=== PATIENT | female | born 1965 | race Hispanic/Latino ===

== ENCOUNTER 2017-04-22 08:39 | Outpatient (CLI) | payer MEDICARE, MEDICAID ==
--- NOTE | 2017-04-22 10:52 | CT ---
CT ABDOMEN AND PELVIS WITH AND WITHOUT IV CONTRAST: Date: 04/22/17 HISTORY: Microhematuria, right-sided back pain. FINDINGS: There is left-sided pleural thickening. The patient is post cholecystectomy. The liver, spleen, panc reas, and adrenal glands are unremarkable. No free air or free fluid is seen in the abdomen or pelvi s. There is an 11.0 mm left paraaortic lymph node. There is a tiny calculus in the right kidney. No calculi seen in the left kidney, either ureter, or the urinary bladder. No hydroureteronephrosis is seen on either side. No renal mass is identified. T here is normal contrast excretion into the ureters and urinary bladder. There are vascular calcifications without evidence of aneurysmal dilatation of the abdominal aorta. Degenerative changes are present in the spine. Uterus and ovaries are present. No abdominal wall her nias are identified. IMPRESSION: 1. Tiny nonobstructing right renal calculus. 2. Enlarged left paraaortic lymph node measuring 11.0 mm. POS: [facility]
[2017-04-22] MEDS ORDERED: Iopamidol 370 76% 100 ML VIAL ONE (14:25)
== END 2017-04-22 08:40 | disposition home or self-care (01) ==
LOC: CT 08:39
PROVIDERS: ATTEND Urology
DX: R31.29 Other microscopic hematuria (principal); N20.0 Calculus of kidney; R59.0 Localized enlarged lymph nodes
CPT/HCPCS: 74178

== ENCOUNTER 2017-09-02 06:20 | Emergency (ER) | payer MEDICARE, MEDICAID | END 2017-09-02 08:16 | disposition home or self-care (01) | LOC: EEVIPCON 06:20 → ERS 06:20 | DX: R21 Rash and other nonspecific skin eruption (principal); E11.9 Type 2 diabetes mellitus without complications; E78.5 Hyperlipidemia, unspecified; I25.10 Atherosclerotic heart disease of native coronary artery without angina pectoris; M06.9 Rheumatoid arthritis, unspecified; I10 Essential (primary) hypertension; M19.90 Unspecified osteoarthritis, unspecified site; F32.9 Major depressive disorder, single episode, unspecified; Z79.82 Long term (current) use of aspirin; Z79.84 Long term (current) use of oral hypoglycemic drugs; Z79.899 Other long term (current) drug therapy | CPT/HCPCS: 99282 ==

== ENCOUNTER 2017-09-29 08:06 | Day surgery (SDC) | payer MEDICARE, MEDICAID ==
[2017-09-29] MEDS ORDERED: diphenhydrAMINE 25 MG CAP PO PRN (08:38)
[2017-09-29] MEDS ORDERED: diphenhydrAMINE 50 MG/ML VIAL IVP PRN (08:38)
[2017-09-29] MEDS ORDERED: Acetaminophen 500 MG TAB PO PRN (08:38)
[2017-09-29] MEDS ORDERED: Sodium Chloride 0.9% 30 ML ONE (08:40)
[2017-09-29] MEDS ORDERED: ADMIXTURE FEE IVPB SCH (08:45)
[2017-09-29] MEDS ORDERED: Acetaminophen 500 MG TAB PO SCH (08:45)
[2017-09-29] MEDS ORDERED: RITUXIMAB IVPB SCH (08:45)
[2017-09-29] MEDS ORDERED: Sodium Chloride 0.9% 1,000 ML IV SCH (08:45)
[2017-09-29] MEDS ORDERED: methylPREDNISolone Sod Succ/PF 125 MG/2 ML VIAL IVP SCH (08:45)
[2017-09-29] MEDS ORDERED: diphenhydrAMINE 25 MG CAP PO SCH (08:45)
[2017-09-29] MEDS ORDERED: SODIUM CHLORIDE IVPB SCH (08:45)
[2017-09-29 09:26] VITALS: BP 126/59; TEMP 98.1
== END 2017-09-29 13:00 | disposition home or self-care (01) ==
LOC: ONC/OP 08:06
PROVIDERS: ATTEND Internal Medicine Rheumatology
DX: M06.9 Rheumatoid arthritis, unspecified (principal); I10 Essential (primary) hypertension; Z88.2 Allergy status to sulfonamides; Z88.8 Allergy status to other drugs, medicaments and biological substances; Z91.040 Latex allergy status
CPT/HCPCS: 96375; 96413; 96415; A4216; J2930; J7050; J9310

== ENCOUNTER 2018-02-03 08:08 | Day surgery (SDC) | payer MEDICARE, MEDICAID ==
[2018-02-03] MEDS ORDERED: Sodium Chloride 0.9% 30 ML ONE (08:42)
[2018-02-03] MEDS ORDERED: diphenhydrAMINE 25 MG CAP PO PRN (08:54)
[2018-02-03] MEDS ORDERED: diphenhydrAMINE 50 MG/ML VIAL IVP PRN (08:54)
[2018-02-03] MEDS ORDERED: Acetaminophen 500 MG TAB PO PRN (08:55)
[2018-02-03] MEDS ORDERED: SODIUM CHLORIDE 0.9% IVPB SCH (09:00)
[2018-02-03] MEDS ORDERED: Acetaminophen 500 MG TAB PO SCH (09:00)
[2018-02-03] MEDS ORDERED: RITUXIMAB IVPB SCH (09:00)
[2018-02-03] MEDS ORDERED: methylPREDNISolone Sod Succ/PF 125 MG/2 ML VIAL IVP SCH (09:00)
[2018-02-03] MEDS ORDERED: diphenhydrAMINE 50 MG/ML VIAL IVP SCH (09:00)
[2018-02-03] MEDS ORDERED: diphenhydrAMINE 25 MG CAP PO SCH (09:00)
[2018-02-03] MEDS ORDERED: Sodium Chloride 0.9% 1,000 ML IV SCH (09:00)
== END 2018-02-03 15:20 | disposition home or self-care (01) ==
LOC: ONC/OP 08:08
PROVIDERS: ATTEND Internal Medicine Rheumatology
DX: M06.9 Rheumatoid arthritis, unspecified (principal)
CPT/HCPCS: 96375; 96413; 96415; A4216; J2930; J7050; J9310

== ENCOUNTER 2018-03-02 20:33 | Inpatient (IN) | payer MEDICARE, MEDICAID ==
[~2018-03-02 20:33] MED LIST: ISOVUE-370 76%-LOCM 1 ML ONE
[2018-03-02 20:57] LABS: Bilirubin Negative (Negative); Blood, Urine Negative (Negative); Clarity CLEAR (Clear); Glucose, Urine (Dipstick) >=1000 mg/dL (Negative); Leukocyte Negative (Negative); Nitrite Negative (Negative); Protein, Urine (Dipstick) Negative (Neg-Trace); Specific Gravity, Urine 1.025 (1.002-1.036)
[2018-03-02 21:06] LABS: #Eosinphils 0.2 thou/uL (0.0-0.7); #Lymphocytes 2.1 thou/uL (1.20-3.40); #Monocytes 0.8 thou/uL (0.11-0.59); #Neutrophils 6.3 thou/uL (1.40-6.50); %Basophils 0.5 % (0.0-1.0); %Eosinophils 1.7 % (0.0-10.0); %Lymphocytes 22.5 % (21.0-51.0); %Monocytes 8.3 % (0.0-10.0); %Neutrophils 67.1 % (42.0-75.0); Hemoglobin 14.1 g/dL (12.0-16.0); Mean Corpuscular HGB CONC 34.9 g/dL (32.0-36.0); Mean Corpuscular Hemoglobin 29.8 pg (27.0-31.0); Mean Corpuscular Volume 85.4 fL (78.0-98.0); Mean Platelet Volume 7.7 fL (7.4-10.4); Platelet Count 296 thou/uL (130-400); RBC Distribution Width 13.7 % (11.5-14.5); Red Blood Cell (RBC) Count 4.73 mill/uL (4.20-5.40); White Blood Cell (WBC) Count 9.5 thou/uL (4.8-10.8)
[2018-03-02 21:30] LABS: ALT (SGPT) 20 U/L (8-55); AST (SGOT) 18 U/L (5-34); Albumin 3.9 g/dL (3.5-5.0); Alkaline Phosphatase 98 U/L (40-150); Anion Gap 14 mmol/L (10-20); BUN (Urea Nitrogen) 14 mg/dL (9.8-20.1); Bilirubin, Total 0.4 mg/dL (0.2-1.2); Calc. Creatinine Clearance 0 mL/min (70-130); Carbon Dioxide 28 mmol/L (22-29); Chloride 98 mmol/L (98-107); Estimated GFR-MDRD 58; Globulin 3.1 g/dL (2.4-3.5); Glucose 413 mg/dL (70-105); Lipase 225 U/L (8-78); Potassium 4.4 mmol/L (3.5-5.1); Sodium 136 mmol/L (136-145)
--- NOTE | 2018-03-02 21:57 | CT ---
CT OF THE ABDOMEN AND PELVIS WITH IV CONTRAST: 03/02/18 INDICATION: 52-year-old female with abdominal pain. COMPARISON: Prior CT of the abdomen and pelvis with and without contrast dated 04/22/17. FINDINGS: There is inflammatory stranding surrounding the pancreatic head and body suspicious for changes of no ncomplicated pancreatitis. The gallbladder is surgically absent. There is mild fatty infiltration of the liver. There is a tiny nonobstructing calculus within the inferior pole of the right kidney. Lobu lated appearance of the both kidneys is stable. The spleen appears within normal limits. Normal appen teresa seen within the right lower quadrant. There is a mild amount of retained stool within the colon. No acute osseous abnormality is evident. IMPRESSION: 1. Findings suspicious for noncomplicated pancreatitis. 2. Stable right nephrolithiasis. 3. Fatty liver. 4. Mild amount of retained stool within the colon. POS: [facility]
[2018-03-02] MEDS ORDERED: Ondansetron HCl/PF 4 MG/2 ML Vial ONE ×2 (21:58→22:05)
[2018-03-02] MEDS ORDERED: Morphine 4 MG/ML VIAL ONE ×2 (21:58→23:10)
[2018-03-02] MEDS ORDERED: Insulin Regular 300 UNITS/3 ML VIAL ONE (22:15)
--- NOTE | 2018-03-02 23:23 | PDOC.EVN ---
Attending Addendum - Attending Addendum Date/Time: 03/02/18 2300 I personally evaluated the patient and discussed the management with Dr. Tiffanie Blankenship /Shannan Brooks. I agree with the History, Examination, Assessment and Plan documented in the electronic H&P with any addition or exceptions noted below. Patient is 52 yo F with PMH RA, DM2, CAD s/p 3v CABG, fibromyalgia who is presenting with abdominal pain. Patient current pain complaint began approximately 9 days ago with intermittent severe midepigastric pain associated with bloating and nausea. However, she reports that this morning, the pain returned and has been constant since that time, with associated nausea, loose stool x1, appetite loss, bloated feelings, with radiation to her back. Reports chills but denies fevers, chest pain, shortness of breath, palpitations, headache. She reports that her blood sugars are normally well controlled in the mornings on Lantus and Glimeperide, but tend to increase through the day. She is unsure of her last A1c. Denies any recent medication changes. She is on several anti-rheumatic drugs through her sandal parts assembler, including methotrexate. Patient also reports about a 6 months history of random abdominal pain, worse after eating, and associated with early satiety and feeling bloated. Reports sometimes regurgitating undigested food. Her exam is pertinent for regular heart rate, BP 160s/80s. She is in mild distress 2/2 pain. Erythema associated with chronic seborrheic dermatitis on her face with associated skin desquamation. RRR, lungs CTAB. Her abdomen is soft, non distended. Moderate pain epigastric and diffusely, with some involuntary guarding. Bowel sounds normoactive. No c/c/e. Warm skin. No evidence of flank or periumbilical hemorrhages or ecchymosis. Labs show elevated Lipase but otherwise normal LFTs, CBC. She is hyperglycemic. CT abdomen is consistent with pancreatitis. Patient to be admitted to medical floor for: 1. Acute pancreatitis, unknown etiology. IV fluids, pain control, and bowel rest. Need full med rec to see if this is 2/2 medication effect versus poorly controlled DM. Gallbladder surgically absent therefore gallstones less likely and not visualized on imaging. BISAP score 0, will check LDH to evaluate Iron score. She is HDS and is not ill appearing at this time. 2. Hyperglycemia in setting of poorly controlled DM. Will check A1c to gauge usp glycemic control. Will need aggressive sliding scale with hypoglycemia protocol to decrease blood sugars in the setting of pancreatic inflammation. She will likely need modulation of her insulin therapy while hospitalized to result in better glycemic control. 3. Uncontrolled DM- as above. 4. Possible diabetic induced gastroparesis- chronic pain appears consistent with this diagnosis. Defer further workup on this until her acute illness is improved/resolved. 5. CAD- await med rec but likely hold the majority of her meds. Consider ASA rectal if needed. 6. DVT ppx- Lovenox.
[2018-03-02] MEDS ORDERED: Sodium Chloride 0.9% 1,000 ML IV SCH (23:45)
[2018-03-02 23:47] VITALS: BMI 46.5
[2018-03-02] MEDS ORDERED: Ondansetron HCl/PF 4 MG/2 ML Vial IVP PRN (23:56)
[2018-03-02] MEDS ORDERED: Ondansetron ODT 4 MG TAB SL PRN (23:56)
[2018-03-02] MEDS ORDERED: Acetaminophen 325 MG TAB PO PRN (23:56)
[2018-03-03] MEDS ORDERED: Senokot 8.6 MG TAB PO PRN (00:25)
[2018-03-03] MEDS ORDERED: Ondansetron HCl/PF 4 MG/2 ML Vial IVP PRN (00:25)
--- NOTE | 2018-03-03 00:27 | PDOC.FPRHP ---
- History of Present Illness History of Present Illness: 52 yo F with multiple comorbidities presents for RUQ abdominal pain. Pain started 3-4 wks ago, was gradual in onset, and pt ignored it, but then yesterday the pain increased and this morning pain became was even worse. Pain is in RUQ, sharp, radiates to the back, has been worsening now 03/04. Associated with nausea, denied vomiting; relieved by nothing. She tends to be constipated. In the ER, Abd/Pelvis CT showed pancreatitis, stable Rt nephrolithiasis, fatty liver, and constipation. Accucheck was 413. Lipase 225. Pt received Humulin R10 , 1L NS, Morphine 4 mg, and zofran 8 mg. - Allergies/Adverse Reactions Allergies Allergy/AdvReac Type Severity Reaction Status Date / Time latex Allergy Verified 11/21/15 05:42 Sulfa (Sulfonamide Allergy Verified 06/02/17 09:16 Antibiotics) sulfamethoxazole Allergy Verified 06/02/17 09:16 [From Bactrim] trimethoprim [From Bactrim] Allergy Verified 06/02/17 09:16 - Home Medications Medication Instructions Recorded Confirmed Type DULoxetine [Cymbalta] 2 capsule PO HS 11/01/13 03/02/18 History Folic Acid 2 tab PO DAILY 11/01/13 03/03/18 History Glimepiride 8 mg PO QAM-WM 11/01/13 03/03/18 History Cholecalciferol (Vitamin D3) 50,000 unit PO Q7DAYS 02/12/15 03/03/18 History [Vitamin D3] Levothyroxine Sodium [Tirosint] 50 mcg PO DAILY 02/12/15 03/03/18 History Lisinopril 5 mg PO HS 02/12/15 03/03/18 History Metoprolol Tartrate 100 mg PO DAILY 02/12/15 03/03/18 History Ranitidine HCl 150 mg PO BID 02/12/15 03/02/18 History Aspirin 1 tab PO QAM 11/21/15 03/03/18 History Hydrochlorothiazide 2 tab PO DAILY 11/21/15 03/03/18 History Insulin Glargine,Hum.Rec.Anlog 100 unit SQ BID 11/21/15 03/03/18 History [Lantus Solostar] Methotrexate Sodium/PF 25 mg IM/IV Q7DAYS 11/21/1518 History [Methotrexate 50 mg/2 ml Vial] Niacin 500 mg PO HS 11/21/15 03/03/18 History [place]-3 Acid Ethyl Esters 2 gm PO BID 11/21/15 03/03/18 History Atorvastatin Calcium 80 mg PO HS 03/02/18 03/02/18 History Buprenorphine 1 patch TOP Q7DAYS 03/03/18 03/03/18 History Fesoterodine Fumarate [Toviaz] 8 mg PO HS 03/03/18 03/03/18 History Pantoprazole Sodium 1 tab PO HS 03/03/18 03/03/18 History Rituximab [Rituxan] 1,000 mg IVPB Q112D 03/03/18 History - History PMHx: DM2, HLD, HTN, Bursititis of rt elbow, OA, RA, fibromyalgia, CAD, depression, hypothyroidism PSHx: CABG triple bypass, cholecystectomy, tonsillectomy, elbow surgery FHx: Cancer- mother with breast cancer, paternal gma and grandfather with lung cancer Social: 33 yrs with 1-2 ppd, ~46 PY hx. Denies alcohol or drug use. - Review of Systems ROS unobtainable: other General: reports: fever/chills (reports chills, no fever), weight/appetite/ sleep changes (decreased appetite past 2 days) Eyes: reports: eye pain (Rt eye pain, not new), other (decreased hearing in L ear). denies: vision changes ENT: denies: nasal congestion, rhinorrhea Respiratory: denies: cough, congestion, shortness of breath Cardiovascular: denies: chest pain, palpitation Gastrointestinal: reports: nausea, constipation. denies: vomiting, diarrhea, abdominal pain, GI bleeding Genitourinary: denies: dysuria, discharge Skin: reports: rashes (rash over face,) Neurological: denies: numbness, weakness Psychological: reports: depression. denies: anxiety - Vital signs BP 139/78, P 77, R 14, T 98.3, 100% on RA, Wt 127 kg - Physical Exam Constitutional: NAD, awake, alert and oriented, well developed HEENT: normocephalic and atraumatic, PERRLA, conjunctiva clear, MMM, oropharynx clear, other (Rough Erythematous rash over face, dark around eyes) Neck: supple, other (+LAD) Heart: RRR, normal S1/S2, no murmurs/rubs/gallops, pulses present Lungs: CTAB, no respiratory distress, good air movement, no rales/rhonchi, no wheezing Abdomen: soft, bowel sounds present, no masses/distention, other (RUQ very TTP, no rebound tenderness, moderate guarding) Musculoskeletal: normal structure, normal tone, ROM grossly normal Neurological: CN II-XII intact, normal sensation Skin: good turgor, capillary refill <2 seconds Psychiatric: normal mood and affect, good judgment and insight, intact recent and remote memory FMR H&P: Results - Labs Result Diagrams: 03/03/18 04:52 03/03/18 04:52 Lab results: WBC 9.5 thou/uL (4.8-10.8) 03/02/18 20:55 Hgb 14.1 g/dL (12.0-16.0) 03/02/18 20:55 Hct 40.4 % (36.0-47.0) 03/02/18 20:55 MCV 85.4 fL (78.0-98.0) 03/02/18 20:55 Plt Count 296 thou/uL (130-400) 03/02/18 20:55 Neutrophils % 67.1 % (42.0-75.0) 03/02/18 20:55 Sodium 136 mmol/L (136-145) 03/02/18 20:55 Potassium 4.4 mmol/L (3.5-5.1) 03/02/18 20:55 Chloride 98 mmol/L (98-107) 03/02/18 20:55 Carbon Dioxide 28 mmol/L (22-29) 03/02/18 20:55 BUN 14 mg/dL (9.8-20.1) 03/02/18 20:55 Creatinine 1.00 mg/dL (0.6-1.1) 03/02/18 20:55 Glucose 413 mg/dL (70-105) H 03/02/18 20:55 Calcium 10.0 mg/dL (7.8-10.44) 03/02/18 20:55 Total Bilirubin 0.4 mg/dL (0.2-1.2) 03/02/18 20:55 AST 18 U/L (5-34) 03/02/18 20:55 ALT 20 U/L (8-55) 03/02/18 20:55 Alkaline Phosphatase 98 U/L (40-150) 03/02/18 20:55 Serum Total Protein 7.0 g/dL (6.0-8.3) 03/02/18 20:55 Albumin 3.9 g/dL (3.5-5.0) 03/02/18 20:55 Lipase 225 U/L (8-78) H 03/02/18 20:55 Urine Ketones Negative mg/dL (Negative) 03/02/18 20:40 Urine Blood Negative (Negative) 03/02/18 20:40 Urine Nitrite Negative (Negative) 03/02/18 20:40 Ur Leukocyte Esterase Negative (Negative) 03/02/18 20:40 - Radiology Interpretation CT scan - abdomen Status: report reviewed by me (Pancreatitis, stable Rt nephrolithiasis, fatty liver, constipation) FMR H&P: A/P - Plan 52 yo F with multiple comorbidities presents for RUQ abdominal pain. Acute Pancreatitis -Abd CT/Pelvis showed pancreatitis. Lipase 225. Unknown at this time what precipitated her pancreatitis, but possibly 2/2 to medications vs uncontrolled sugars vs other. HCTZ and glimipiride held at this time. -Bigelow Criteria: 1; BISAP score 0 -LR @ 175 ml/hr, NPO with icechips and sips of water with meds. -Morphine for pain control, zofran for nausea -Will continue to monitor -Morning CBC and CMP Hyperglycemia -Pt initial glucose 413. Hx of DM type 2 -SSI started Constipation -Senna docusate ordered HLD, HTN, CAD, depression, hypothyroidism: -Continued home medications Code status: Full code Ambrocio Blankenship, PGY-1 FMR H&P: Upper Level - Pertinent history 52F presents for 2 weeks of upper quadrant abd pain. It has been constant, exacerbated by food. Nothing has helped. It is associated with nausea. It is describes as a sharp pain with radiation to back. She rate it as a 8/10 in the ER. She specifically denies vomiting, diarrhea, constipation, fever, SOB, or chest pain. In ER, she was found to be hyperglycemic but without acidosis. She received 10 U of humalin R, 1 L NS, Morphine 4 mg, Zofran 8 mg. PMH: DM2, HLD, HTN, Right bursitis, OA, RA, fibromyalgia, CAD, depression PSH: CABG x3, cholecystectomy, tonsillectomy, rt elbow sx Allergy: Bactrim, Latex, rubber product Med: See Whiskey Proof Reader note FH: Father and Mother with diabetes SH: Tobacco abuser ROS Gen: Deny fever, chills HEENT: Deny headache, cough, congestion Resp: Deny SOB CV: Deny chest pain , palpitation GI: Endorse abd pain, nausea : Denies dysuria - Pertinent findings Vitals: 139/78, Pulse 77, Resp 19, Tmax 98.3, O2 100% on RA, Wt 126 kg Gen: Alert, grossly oriented, obese, NAD HEENT: Normocephalic, no juandice, moist mucosal membrane, supple neck CV: RRR with possible systolic murmur Resp: CTA bilaterally Abd: Soft, normoactive bowel sound, tenderness to palpation, without rigidity Derm: No rash or lesion noted Lipase 225, Serum glucose 413, Urine glucose 1000, CT scan: Uncomplicated pancreatitis, stable R nephrolithiasis, fatty liver, constipation - Plan Date/Time: 03/03/18 0027 I, [Luis Antonio Ly], have evaluated this patient and agree with findings/plan as outlined by programming internship resident. Pertinent changes/additions are listed here. 1. Pancreatitis: At this time, unknown etiology. Possible drug induced. Bigelow score of 1 on admission. Fluid hydration, pain control, NPO at this time. Advance diet as tolerated. 2. Hyperglycemia: Patient on high dose of home insulin. Reduce from 100 U BID to 40 U BID of long acting with SSI. W 3. Constipation: Start on laxatives. 4. Fatty liver disease: Environmental Attorney patient on dietary changes. 5. DM2: Insulin management ass above. Hold glimeperide as possible cause of pancreatitis.At this time, uncontrolled. 6. HTN: Hold HCTZ, possible cause of pancreatitis. Continue other home med. 7. GERD: Continue home protonix and ranitidine 8. Hypothyrodism: Continue home levothyroxine 9. HLD: Continue home atorvastatin 10: Depression: Continue home duloxetine 11. RA: Hold rheumatoid mediation at this time. Attending Addendum - Attending Addendum Date/Time: 03/02/18 1780 I personally evaluated the patient and discussed the management with Dr. Blankenship/ Cecilia. I agree with the History, Examination, Assessment and Plan documented above with any addition or exceptions noted below. Please see event noted dated 03/02/18 for further attending details.
[2018-03-03] MEDS ORDERED: Dextrose 5% in Water 1,000 ML IV PRN (00:34)
[2018-03-03] MEDS ORDERED: Dextrose 50% Abboject 50 ML SYRINGE SLOW IVP PRN (00:34)
[2018-03-03] MEDS ORDERED: Lactated Ringer's 1,000 ML IV SCH (00:45)
[2018-03-03] MEDS ORDERED: Morphine 4 MG/ML VIAL SLOW IVP SCH (01:00)
[2018-03-03] MEDS ORDERED: DULoxetine 60 MG CAP PO SCH ×2 (01:00→21:00)
[2018-03-03] MEDS: Lactated Ringer's 1,000 ML IV SCH ×5 (01:00→22:40)
[2018-03-03] MEDS ORDERED: Enoxaparin Sodium 40 MG/0.4 ML SYRINGE SC SCH (01:00)
[2018-03-03] MEDS ORDERED: Atorvastatin Calcium 40 MG TAB PO SCH (01:15)
[2018-03-03] MEDS: Morphine 4 MG/ML VIAL SLOW IVP PRN ×4 (04:39→21:12)
[2018-03-03] MEDS: HumaLOG 300 UNITS/3 ML VIAL SC PRN (04:47)
[2018-03-03] MEDS ORDERED: diphenhydrAMINE 50 MG/ML VIAL IVP SCH (05:00)
[2018-03-03] MEDS ORDERED: Fentanyl 100 MCG/2 ML VIAL SLOW IVP SCH (05:22)
[2018-03-03] MEDS ORDERED: Melatonin 3 MG TAB PO SCH (05:23)
[2018-03-03] MEDS ORDERED: Levothyroxine Sodium 50 MCG TAB PO SCH (06:00)
[2018-03-03 06:10] LABS: #Basophils 0.1 thou/uL (0.0-0.2); #Eosinphils 0.2 thou/uL (0.0-0.7); #Lymphocytes 2.5 thou/uL (1.20-3.40); #Monocytes 1.1 thou/uL (0.11-0.59); #Neutrophils 7.2 thou/uL (1.40-6.50); %Basophils 0.8 % (0.0-1.0); %Eosinophils 1.9 % (0.0-10.0); %Lymphocytes 22.4 % (21.0-51.0); %Monocytes 9.7 % (0.0-10.0); %Neutrophils 65.1 % (42.0-75.0); Hemoglobin 12.7 g/dL (12.0-16.0); Mean Corpuscular HGB CONC 34.1 g/dL (32.0-36.0); Mean Corpuscular Volume 85.1 fL (78.0-98.0); Mean Platelet Volume 8.2 fL (7.4-10.4); Platelet Count 268 thou/uL (130-400); RBC Distribution Width 13.8 % (11.5-14.5); Red Blood Cell (RBC) Count 4.39 mill/uL (4.20-5.40)
[2018-03-03 06:22] LABS: ALT (SGPT) 18 U/L (8-55); AST (SGOT) 15 U/L (5-34); Albumin 3.5 g/dL (3.5-5.0); Alkaline Phosphatase 87 U/L (40-150); Anion Gap 15 mmol/L (10-20); BUN (Urea Nitrogen) 11 mg/dL (9.8-20.1); Bilirubin, Total 0.5 mg/dL (0.2-1.2); Calc. Creatinine Clearance 166 mL/min (70-130); Calcium 9.2 mg/dL (7.8-10.44); Carbon Dioxide 26 mmol/L (22-29); Chloride 100 mmol/L (98-107); Estimated GFR-MDRD 76; Globulin 2.6 g/dL (2.4-3.5); Glucose 238 mg/dL (70-105); Lipase 193 U/L (8-78); Potassium 3.8 mmol/L (3.5-5.1); Protein, Total 6.1 g/dL (6.0-8.3); Sodium 137 mmol/L (136-145)
[2018-03-03 06:37] LABS: Cardiac Risk 4.9 (Less than 4.5)
[2018-03-03] MEDS ORDERED: hydrALAZINE 20 MG/ML VIAL SLOW IVP PRN (07:47)
--- NOTE | 2018-03-03 07:53 | PDOC.FM ---
- Subjective Subjective: No acute events overnight. Pt reports pain that is slightly improved from yesterday. Does report persistent pain with medications and sips of water, as such will be placed strict NPO. Any necessary medications to be given IV. - Objective Vital Signs & Weight: Vital Signs (12 hours) Temp Pulse Resp BP Pulse Ox 03/03/18 04:38 98.5 F 74 18 135/76 96 03/02/18 23:38 98.4 F 84 18 95 03/02/18 23:30 98.4 F 84 18 175/90 H 95 Weight Weight 126.722 kg I&O: 03/02/18 03/03/18 03/04/18 06:59 06:59 06:59 Intake Total 772 Balance 772 Result Diagrams: 03/03/18 04:52 03/03/18 04:52 <Asif Proctor - Last Filed: 03/03/18 07:51> - Objective Vital Signs & Weight: Vital Signs (12 hours) Temp Pulse Resp BP BP Pulse Ox 03/03/18 07:56 98.4 F 78 16 115/67 95 03/03/18 04:38 98.5 F 74 18 135/76 96 03/02/18 23:38 98.4 F 84 18 95 03/02/18 23:30 98.4 F 84 18 175/90 H 95 Weight Weight 126.722 kg I&O: 03/02/18 03/03/18 03/04/18 06:59 06:59 06:59 Intake Total 772 Balance 772 Result Diagrams: 03/03/18 04:52 03/03/18 04:52 <Andrea Mike - Last Filed: 03/03/18 10:24> Phys Exam - Physical Examination Constitutional: NAD HEENT: PERRLA, sclera anicteric Neck: no nodes, no JVD Respiratory: no wheezing, no rales, no rhonchi, clear to auscultation bilateral Cardiovascular: RRR, no significant murmur, no rub Gastrointestinal: soft, no distention, positive bowel sounds TTP epigastrium w/ guarding. No rebound. Musculoskeletal: no edema, pulses present Neurological: non-focal, moves all 4 limbs Skin: cap refill <2 seconds Deviation from normal: seborrheic dermatitis over face <Asif Proctor - Last Filed: 03/03/18 07:51> Dx/Plan (1) Pancreatitis Code(s): K85.90 - ACUTE PANCREATITIS WITHOUT NECROSIS OR INFECTION, UNSP Status: Acute (2) Leukocytosis Code(s): D72.829 - ELEVATED WHITE BLOOD CELL COUNT, UNSPECIFIED Status: Acute (3) Diabetes type 2, uncontrolled Code(s): E11.65 - TYPE 2 DIABETES MELLITUS WITH HYPERGLYCEMIA Status: Acute (4) Hypothyroidism Code(s): E03.9 - HYPOTHYROIDISM, UNSPECIFIED Status: Acute (5) HLD (hyperlipidemia) Code(s): E78.5 - HYPERLIPIDEMIA, UNSPECIFIED Status: Acute (6) HTN (hypertension) Code(s): I10 - ESSENTIAL (PRIMARY) HYPERTENSION Status: Chronic Qualifiers: Hypertension type: essential hypertension Qualified Code(s): I10 - Essential (primary) hypertension (7) Depression Code(s): F32.9 - MAJOR DEPRESSIVE DISORDER, SINGLE EPISODE, UNSPECIFIED Status : Acute - Plan Plan: 1) Pancreatitis: - pt reports pain with meds/icee chips and sips of water, as such will be placed NPO and medications will be held - if she is reporting improvement of pain, can give meds this evening. - Iron score of 1 2/2 hyperglycemia 2) DMII: - uncontrolled - will give lantus 40U BID - only given 10U insulin in ED with drop in BS to 200s - Mod SSI - monitor 3) HLD: - check FLP r/o hypertriglyceridemia as cause of pancreatitis - hold statin until tolerating PO 4) HTN: - hydralazine PRN for BP >160/110 - hold lisinopril for now - no diruretics or thiazides 2/2 #1 5) Depression: - hold home meds - give this PM if tolerating PO later 6) Hypothyroid: - hold home meds - Give in AM if tolerating PO Dispo: Persistent pain with only meds/sips of water. Cont IV pain control and pt to be strict NPO. Cont IV fluids. <Asif Proctor - Last Filed: 03/03/18 07:51> Attending Addendum - Attending Addendum Date/Time: 03/03/18 1023 I personally evaluated the patient and discussed the management with Dr. Proctor. I agree with the History, Examination, Assessment and Plan documented above with any addition or exceptions noted below. Patient with some improvement in pain but continues to have worsening with sips of water or ice and medications. Will make strict NPO at this time. Continue IVF and pain control. Insulin as needed for blood sugar control. Other labs and vitals stable. <Andrea Mike - Last Filed: 03/03/18 10:24>
[2018-03-03] MEDS ORDERED: Fish Oil 1,000 MG CAP PO SCH (08:00)
[2018-03-03] MEDS ORDERED: Aspirin 325 MG TAB PO SCH (08:00)
[2018-03-03] MEDS ORDERED: Non-Formulary Item 1 EACH (Insulin Glargine,Hum.Rec.Anlog [Lantus Solostar] 40 UNIT) SQ SCH (09:00)
[2018-03-03] MEDS ORDERED: Metoprolol Tartrate 100 MG TAB PO SCH (09:00)
[2018-03-03] MEDS ORDERED: Famotidine 20 MG TAB PO SCH (09:00)
[2018-03-03] MEDS ORDERED: Folic Acid 1 MG TAB PO SCH (09:00)
[2018-03-03] MEDS ORDERED: HYDROCHLOROTHIAZIDE PO SCH (09:00)
[2018-03-03] MEDS ORDERED: TROSPIUM 20 MG TABLET PO SCH (09:00)
[2018-03-03] MEDS: Famotidine/PF 20 mg/2ml Vial SLOW IVP SCH (10:41)
[2018-03-03] MEDS: Insulin Glargine 40 UNITS in Pre-Filled Syringe 1 EACH SC SCH ×2 (10:42→22:07)
[2018-03-03] MEDS ORDERED: Acetaminophen 325 MG TAB PO PRN (15:24)
[2018-03-03] MEDS ORDERED: Ketorolac Tromethamine 30 MG/ML VIAL IVP SCH ×2 (16:03→22:15)
[2018-03-03] MEDS ORDERED: Lisinopril 5 MG TAB PO SCH (21:00)
[2018-03-03] MEDS ORDERED: Niacin 500 MG TAB PO SCH (21:00)
[2018-03-03] MEDS: Enoxaparin Sodium 40 MG/0.4 ML SYRINGE SC SCH (21:12)
[2018-03-03] MEDS ORDERED: Promethazine HCl 25 MG/ML VIAL IM SCH (22:15)
[2018-03-03] MEDS ORDERED: diphenhydrAMINE 25 MG in Sodium Chloride 0.9% 50 ML IVPB SCH (22:15)
[2018-03-04] MEDS: Lactated Ringer's 1,000 ML IV SCH ×4 (04:36→23:45)
[2018-03-04 05:02] LABS: #Basophils 0.1 thou/uL (0.0-0.2); #Eosinphils 0.2 thou/uL (0.0-0.7); #Lymphocytes 2.7 thou/uL (1.20-3.40); #Monocytes 0.8 thou/uL (0.11-0.59); #Neutrophils 4.4 thou/uL (1.40-6.50); %Basophils 1.1 % (0.0-1.0); %Eosinophils 2.2 % (0.0-10.0); %Lymphocytes 33.1 % (21.0-51.0); %Monocytes 9.6 % (0.0-10.0); %Neutrophils 53.9 % (42.0-75.0); Hemoglobin 12.3 g/dL (12.0-16.0); Mean Corpuscular HGB CONC 34.3 g/dL (32.0-36.0); Mean Corpuscular Hemoglobin 29.3 pg (27.0-31.0); Mean Corpuscular Volume 85.6 fL (78.0-98.0); Mean Platelet Volume 8.1 fL (7.4-10.4); Platelet Count 262 thou/uL (130-400); RBC Distribution Width 13.6 % (11.5-14.5); Red Blood Cell (RBC) Count 4.18 mill/uL (4.20-5.40); White Blood Cell (WBC) Count 8.1 thou/uL (4.8-10.8)
[2018-03-04 05:05] LABS: ALT (SGPT) 15 U/L (8-55); AST (SGOT) 16 U/L (5-34); Albumin 3.1 g/dL (3.5-5.0); Alkaline Phosphatase 74 U/L (40-150); Anion Gap 11 mmol/L (10-20); BUN (Urea Nitrogen) 8 mg/dL (9.8-20.1); Bilirubin, Total 0.6 mg/dL (0.2-1.2); Calc. Creatinine Clearance 169 mL/min (70-130); Carbon Dioxide 30 mmol/L (22-29); Chloride 104 mmol/L (98-107); Estimated GFR-MDRD 77; Globulin 2.5 g/dL (2.4-3.5); Glucose 103 mg/dL (70-105); Potassium 3.6 mmol/L (3.5-5.1); Protein, Total 5.6 g/dL (6.0-8.3); Sodium 141 mmol/L (136-145)
[2018-03-04] MEDS: Morphine 4 MG/ML VIAL SLOW IVP PRN (05:35)
[2018-03-04] MEDS ORDERED: RITUXIMAB 1000 MG IVPB SCH (06:30)
--- NOTE | 2018-03-04 06:34 | PDOC.FM ---
- Subjective Subjective: Pt was found to have a beprenorphine patch by nursing last PM. Currently pt reports persistent pain, but reports slight improvement from yesterday. She denies cp, sob, nvd. She denies passing flatus and has not had a bm since admission. - Objective Vital Signs & Weight: Vital Signs (12 hours) Temp Pulse Resp BP Pulse Ox 03/04/18 04:33 98.2 F 73 16 118/71 91 L 03/04/18 00:30 98.1 F 74 16 116/70 93 L 03/03/18 20:01 98.0 F 73 18 120/76 94 L 03/03/18 20:00 98.0 F 73 18 94 L Weight Weight 126.722 kg I&O: 03/02/18 03/03/18 03/04/18 06:59 06:59 06:59 Intake Total 772 2100 Balance 772 2100 Result Diagrams: 03/04/18 03:34 03/04/18 03:34 <Asif Proctor - Last Filed: 03/04/18 06:36> - Objective Vital Signs & Weight: Vital Signs (12 hours) Temp Pulse Resp BP BP Pulse Ox 03/04/18 08:34 70 138/81 03/04/18 07:27 97.5 F L 70 20 138/81 96 03/04/18 04:33 98.2 F 73 16 118/71 91 L 03/04/18 00:30 98.1 F 74 16 116/70 93 L Weight Weight 126.722 kg I&O: 03/03/18 03/04/18 03/05/18 06:59 06:59 06:59 Intake Total 772 2100 Balance 772 2100 Result Diagrams: 03/04/18 03:34 03/04/18 03:34 <Andrea Mike - Last Filed: 03/04/18 08:49> Phys Exam - Physical Examination Constitutional: NAD HEENT: PERRLA, sclera anicteric Neck: no nodes, no JVD Respiratory: no wheezing, no rales, no rhonchi, clear to auscultation bilateral Cardiovascular: RRR, no significant murmur, no rub Gastrointestinal: soft, no distention diffusely ttp, worse in RUQ and RLQ in addition to epigastrium, sluggish BS Musculoskeletal: no edema, pulses present Neurological: non-focal, moves all 4 limbs Psychiatric: normal affect Skin: cap refill <2 seconds Deviation from normal: sebhorreic dermatitis face <Asif Proctor - Last Filed: 03/04/18 06:36> Dx/Plan (1) Pancreatitis Code(s): K85.90 - ACUTE PANCREATITIS WITHOUT NECROSIS OR INFECTION, UNSP Status: Acute (2) Leukocytosis Code(s): D72.829 - ELEVATED WHITE BLOOD CELL COUNT, UNSPECIFIED Status: Resolved (3) Diabetes type 2, uncontrolled Code(s): E11.65 - TYPE 2 DIABETES MELLITUS WITH HYPERGLYCEMIA Status: Acute (4) Hypothyroidism Code(s): E03.9 - HYPOTHYROIDISM, UNSPECIFIED Status: Acute (5) HLD (hyperlipidemia) Code(s): E78.5 - HYPERLIPIDEMIA, UNSPECIFIED Status: Acute (6) HTN (hypertension) Code(s): I10 - ESSENTIAL (PRIMARY) HYPERTENSION Status: Chronic Qualifiers: Hypertension type: essential hypertension Qualified Code(s): I10 - Essential (primary) hypertension (7) Depression Code(s): F32.9 - MAJOR DEPRESSIVE DISORDER, SINGLE EPISODE, UNSPECIFIED Status : Acute - Plan Plan: 1) Pancreatitis: - pt rpeorts some improvement of pain; however, pain is persistent and diffuse - she was found to have pubrenorphine patch yesterday PM which is complicating clinical picture - her pain seems more diffuse and her exam suggests global hypofunctioning bowel. - differential includes diabetic gastroparesis vs opioid induced gastroparesis - will cont prn morphine for pain control 2/2 ct findings of pancreatitis - ADAT, will start clear liquids - resume home meds - add metoclopramide 5mg IVP TID before meals 2) DMII: - uncontrolled - will give lantus 40U BID - currently held lantus 2/2 NPO and decreased PO intake 3) HLD: - cont statin 4) HTN: - hydralazine PRN for BP >160/110 - No HCTZ - Cont lisinopril, monitor 5) Depression: - resume home meds 6) Hypothyroid: -resume home meds Dispo: Pt reports persistent, diffuse abdominal pain worse on the rt side of abdomen and epigastrium. Clinical picture complicated by uncontrolled DMII and chronic opioid use. Will resume home meds, ADAT and add reglan 5mg IVP w/ meals. Cont to monitor for clinical improvement. Labs have normalized and LFTs are WNL. Low suspicion for infectious or biliary source. <Asif Proctor - Last Filed: 03/04/18 06:36> Attending Addendum - Attending Addendum Date/Time: 03/04/18 0848 I personally evaluated the patient and discussed the management with Dr. Proctor. I agree with the History, Examination, Assessment and Plan documented above with any addition or exceptions noted below. Patient reports feeling improved this morning and was feeling alright with ice chips. Will advance diet to clears and give Reglan for nausea and possible symptoms of gastroparesis. If tolerates well, continue to advance. Otherwise, will need to de-escalate diet again and consider GI consult due to recurrent pancreatitis. <Andrea Mike - Last Filed: 03/04/18 08:49>
[2018-03-04] MEDS ORDERED: Levothyroxine Sodium 50 MCG TAB PO SCH (07:00)
[2018-03-04] MEDS ORDERED: Metoclopramide HCl 10 MG/2 ML VIAL IVP SCH ×2 (07:00→14:00)
[2018-03-04 07:01] LABS: Hemoglobin A1c 11.5 % (4.0-6.0)
[2018-03-04] MEDS: Lisinopril 5 MG TAB PO SCH (08:34)
[2018-03-04] MEDS: Aspirin 325 mg Enteric Coated Tablet PO SCH (08:34)
[2018-03-04] MEDS: Famotidine/PF 20 mg/2ml Vial SLOW IVP SCH (08:35)
[2018-03-04] MEDS: Insulin Glargine 10 UNITS in Pre-Filled Syringe SC SCH (08:36)
[2018-03-04] MEDS: Betamethasone 0.1% Cream 15 GM TUBE TOP SCH ×2 (08:36→20:59)
[2018-03-04] MEDS: Hydrocortisone 1% Cream 1.5 GM Packet TOP SCH (08:36)
[2018-03-04] MEDS ORDERED: FLUOCINOLONE ACETONIDE TOP SCH (09:00)
[2018-03-04] MEDS: Metoclopramide HCl 10 MG/2 ML VIAL IVP SCH ×2 (13:54→20:59)
[2018-03-04 19:54] VITALS: TEMP 98.4
[2018-03-04] MEDS: Enoxaparin Sodium 40 MG/0.4 ML SYRINGE SC SCH (20:59)
[2018-03-04] MEDS ORDERED: Atorvastatin Calcium 40 MG TAB PO SCH ×2 (21:00)
[2018-03-04] MEDS ORDERED: Insulin Glargine 10 UNITS in Pre-Filled Syringe SC SCH (21:00)
[2018-03-04] MEDS ORDERED: DULoxetine 60 MG CAP PO SCH (21:00)
[2018-03-05 05:00] LABS: #Eosinphils 0.1 thou/uL (0.0-0.7); #Lymphocytes 2.6 thou/uL (1.20-3.40); #Monocytes 0.8 thou/uL (0.11-0.59); #Neutrophils 4.5 thou/uL (1.40-6.50); %Basophils 0.6 % (0.0-1.0); %Eosinophils 1.7 % (0.0-10.0); %Lymphocytes 32.6 % (21.0-51.0); %Monocytes 9.9 % (0.0-10.0); %Neutrophils 55.3 % (42.0-75.0); Hemoglobin 12.9 g/dL (12.0-16.0); Mean Corpuscular HGB CONC 34.4 g/dL (32.0-36.0); Mean Corpuscular Hemoglobin 29.5 pg (27.0-31.0); Mean Corpuscular Volume 85.5 fL (78.0-98.0); Mean Platelet Volume 7.5 fL (7.4-10.4); Platelet Count 288 thou/uL (130-400); RBC Distribution Width 13.5 % (11.5-14.5); Red Blood Cell (RBC) Count 4.37 mill/uL (4.20-5.40); White Blood Cell (WBC) Count 8.1 thou/uL (4.8-10.8)
[2018-03-05 05:21] LABS: ALT (SGPT) 16 U/L (8-55); AST (SGOT) 15 U/L (5-34); Albumin 3.6 g/dL (3.5-5.0); Alkaline Phosphatase 82 U/L (40-150); Anion Gap 14 mmol/L (10-20); BUN (Urea Nitrogen) 6 mg/dL (9.8-20.1); Bilirubin, Total 0.8 mg/dL (0.2-1.2); Calc. Creatinine Clearance 175 mL/min (70-130); Calcium 9.7 mg/dL (7.8-10.44); Carbon Dioxide 27 mmol/L (22-29); Chloride 102 mmol/L (98-107); Estimated GFR-MDRD 80; Globulin 2.9 g/dL (2.4-3.5); Glucose 152 mg/dL (70-105); Potassium 3.9 mmol/L (3.5-5.1); Protein, Total 6.5 g/dL (6.0-8.3); Sodium 139 mmol/L (136-145)
[2018-03-05] MEDS: Metoclopramide HCl 10 MG/2 ML VIAL IVP SCH (05:24)
[2018-03-05] MEDS: Lactated Ringer's 1,000 ML IV SCH (05:25)
[2018-03-05] MEDS ORDERED: Levothyroxine Sodium 50 MCG TAB PO SCH (06:00)
--- NOTE | 2018-03-05 07:25 | PDOC.FM ---
- Subjective Subjective: This morning patient states that her pain is totally resolved. She has been on clear liquid diet and has not had any solids as of yet. She does have a rosaeca that developed over the last few days. She is having no abdominal pain, N/V/D. She would like to go home today. - Objective MAR Reviewed: Yes Vital Signs & Weight: Vital Signs (12 hours) Temp Pulse Resp BP Pulse Ox 03/04/18 20:00 98.4 F 85 18 94 L 03/04/18 19:51 98.4 F 85 18 164/82 H 94 L Weight Weight 126.722 kg I&O: 03/04/18 03/05/18 03/06/18 06:59 06:59 06:59 Intake Total 2100 2404 Balance 2100 2404 Result Diagrams: 03/05/18 04:19 03/05/18 04:18 <Selvin Blankenship - Last Filed: 03/05/18 07:24> - Objective Vital Signs & Weight: Vital Signs (12 hours) Temp Pulse Resp BP BP Pulse Ox 03/05/18 08:29 60 156/65 H 03/05/18 08:00 98.4 F 60 18 98 03/05/18 07:48 98.4 F 60 18 156/65 H 98 Weight Weight 126.722 kg I&O: 03/04/18 03/05/18 03/06/18 06:59 06:59 06:59 Intake Total 2100 2404 Balance 2100 2404 Result Diagrams: 03/05/18 04:19 03/05/18 04:18 <Kyle Ponce - Last Filed: 03/05/18 12:41> Phys Exam - Physical Examination Constitutional: NAD HEENT: PERRLA, moist MMs Respiratory: no wheezing, clear to auscultation bilateral Cardiovascular: RRR, no significant murmur Gastrointestinal: soft, non-tender, no distention, positive bowel sounds Musculoskeletal: no edema, pulses present Neurological: non-focal, moves all 4 limbs Psychiatric: A&O x 3 Skin: cap refill <2 seconds Deviation from normal: rosaeca on the face <Selvin Blankenship - Last Filed: 03/05/18 07:24> Dx/Plan (1) Pancreatitis Code(s): K85.90 - ACUTE PANCREATITIS WITHOUT NECROSIS OR INFECTION, UNSP Status: Acute (2) Diabetes type 2, uncontrolled Code(s): E11.65 - TYPE 2 DIABETES MELLITUS WITH HYPERGLYCEMIA Status: Acute (3) HLD (hyperlipidemia) Code(s): E78.5 - HYPERLIPIDEMIA, UNSPECIFIED Status: Acute (4) HTN (hypertension) Code(s): I10 - ESSENTIAL (PRIMARY) HYPERTENSION Status: Chronic Qualifiers: Hypertension type: essential hypertension Qualified Code(s): I10 - Essential (primary) hypertension - Plan Plan: # Pancreatitis: -pain is resolved this AM - lipase 225->193 - no morphine overnight - metoclopramide 5mg IVP TID before meals - advance diet to solids this AM # DMII - uncontrolled - lantus 40U BID - currently held lantus 2/2 NPO and decreased PO intake # HLD: - cont statin # HTN: - hydralazine PRN for BP >160/110 - No HCTZ - Cont lisinopril, monitor # Depression: - resume home meds # Hypothyroid: -resume home meds Code: full fluids: TKO diet: heart healthy, bland Dispo: anticipate d/c this PM pending Po intake <Selvin Blankenship - Last Filed: 03/05/18 07:24> Attending Addendum - Attending Addendum Date/Time: 03/05/18 1237 I personally evaluated the patient and discussed the management with Dr. Blankenship. I agree with the History, Examination, Assessment and Plan documented above with any addition or exceptions noted below. Stable for discharge. <Kyle Ponce - Last Filed: 03/05/18 12:41>
[2018-03-05 07:51] VITALS: BP 156/65
[2018-03-05] MEDS: Aspirin 325 mg Enteric Coated Tablet PO SCH (08:29)
[2018-03-05] MEDS: Lisinopril 5 MG TAB PO SCH (08:29)
[2018-03-05] MEDS: Insulin Glargine 10 UNITS in Pre-Filled Syringe SC SCH (08:30)
[2018-03-05] MEDS: Hydrocortisone 1% Cream 1.5 GM Packet TOP SCH (08:30)
[2018-03-05] MEDS: Famotidine/PF 20 mg/2ml Vial SLOW IVP SCH (08:30)
[2018-03-05] MEDS: Betamethasone 0.1% Cream 15 GM TUBE TOP SCH (08:30)
[2018-03-05] MEDS: HumaLOG 300 UNITS/3 ML VIAL SC PRN (12:41)
--- NOTE | 2018-03-05 21:51 | DIS-2 ---
DATE OF ADMISSION: 03/02/2018 DATE OF DISCHARGE: 03/05/2018 RESIDENT: Selvin Blankenship MD ADMITTING ATTENDING: Andrea Mike MD DISCHARGE ATTENDING: Dr. Kyle Ponce. CONSULTATIONS: None. PROCEDURES: CT abdomen and pelvis showing findings suspicious for noncomplicated pancreatitis, stabl e right nephrolithiasis, fatty liver, mild amount of retained stool within the colon. PRIMARY DIAGNOSIS: Idiopathic pancreatitis. SECONDARY DIAGNOSES: Type 2 diabetes mellitus, hyperlipidemia, hypertension, depression, hypothyroid ism. DISCHARGE MEDICATIONS: Buprenorphine patch, vitamin D, aspirin, glimepiride, folic acid, Lantus, hyd rochlorothiazide, lisinopril, levothyroxine, metoprolol, methotrexate, omega 3 fatty acids, duloxetin e, ranitidine, atorvastatin, rituximab infusions per Hematology/Oncology. DISCONTINUED MEDICATIONS: Niacin, fenofibrate. HISTORY OF PRESENT ILLNESS AND HOSPITAL COURSE: This is a 52-year-old female presenting with right u pper quadrant abdominal pain. The pain started about 3-4 weeks ago was gradual in onset and then got increasingly worse this morning. The pain was described as right upper quadrant, sharp and radiatin g to the back, worsening up to 8/10. Denied nausea, vomiting or diarrhea. Nothing seemed to relieve it. Lipase in the ER was found to be 225. Accu-Chek was 413. Patient did not have an anion gap at that time. The patient was admitted and given fluids, pain medications and bowel rest. Iron criteria was 1. Lipase trended down. Patient was very sensitive to insulin 10 units dropped it over 100 points. FLP showed total cholesterol 127, LDL 72, HDL 26. For this reason, fenofibrate and niacin were stopped because cholesterol was well controlled and the risk factors for pancreatitis at this time. A1c was 11.5. Instructed the patient that she needs to be taking her insulin at home and not skipping doses. DISPOSITION: Stable. DISCHARGE INSTRUCTIONS: 1. Location: Home. 2. Diet: Diabetic. 3. Activity: As tolerated. 4. Follow up Dr. Yee every 3 days. A1c was 11.5. Further diuretic education is warranted. No ad justment to insulin regimen at this time because she was quite sensitive to insulin in the hospital.
[2018-03-06] MEDS ORDERED: Famotidine 20 MG TAB PO SCH (09:00)
[2018-03-09] MEDS ORDERED: Ergocalciferol 1.25 MG(50,000 UNITS) CAP PO SCH (09:00)
== END 2018-03-05 12:50 | disposition home or self-care (01) | DRG 440 ==
LOC: ERS 20:33 → T4-B 23:45
PROVIDERS: ADMIT Student in an Organized Health Care Education/Training Program; ATTEND Student in an Organized Health Care Education/Training Program
DX: K85.90 Acute pancreatitis without necrosis or infection, unspecified (principal); E78.5 Hyperlipidemia, unspecified; I10 Essential (primary) hypertension; M19.90 Unspecified osteoarthritis, unspecified site; M06.9 Rheumatoid arthritis, unspecified; M79.7 Fibromyalgia; I25.10 Atherosclerotic heart disease of native coronary artery without angina pectoris; F32.9 Major depressive disorder, single episode, unspecified; E03.9 Hypothyroidism, unspecified; F17.210 Nicotine dependence, cigarettes, uncomplicated; E11.65 Type 2 diabetes mellitus with hyperglycemia; K59.00 Constipation, unspecified; K76.0 Fatty (change of) liver, not elsewhere classified; E11.43 Type 2 diabetes mellitus with diabetic autonomic (poly)neuropathy; K31.84 Gastroparesis; Z79.82 Long term (current) use of aspirin; Z79.4 Long term (current) use of insulin; Z95.1 Presence of aortocoronary bypass graft; Z80.3 Family history of malignant neoplasm of breast; Z80.1 Family history of malignant neoplasm of trachea, bronchus and lung
CPT/HCPCS: 36415; 36416; 74177; 80053; 80061; 81003; 83036; 83615; 83690; 85025; 93005; 96361; 96374; 96375; 96376; A4216; J1200; J1650; J1815; J1885; J2270; J2405; J2550; J2765; J3010; J7050; J9250; S0028

== ENCOUNTER 2018-05-26 08:16 | Day surgery (SDC) | payer MEDICARE, MEDICAID ==
[2018-05-26] MEDS ORDERED: Sodium Chloride 0.9% 1,000 ML IV SCH (08:30)
[2018-05-26] MEDS ORDERED: METHYLPREDNISOLONE SOD SUCC IVP SCH (08:30)
[2018-05-26] MEDS ORDERED: diphenhydrAMINE 25 MG CAP PO PRN (08:30)
[2018-05-26] MEDS ORDERED: [UNRECOGNIZED DRUG - OTHER] IVP SCH (08:30)
[2018-05-26] MEDS ORDERED: Acetaminophen 500 MG TAB PO SCH (08:30)
[2018-05-26] MEDS ORDERED: diphenhydrAMINE 25 MG CAP PO SCH (08:30)
[2018-05-26] MEDS ORDERED: SODIUM CHLORIDE 0.9% IVPB SCH (08:30)
[2018-05-26] MEDS ORDERED: RITUXIMAB IVPB SCH (08:30)
[2018-05-26] MEDS ORDERED: diphenhydrAMINE 50 MG/ML VIAL IVP PRN (08:30)
[2018-05-26] MEDS ORDERED: ADMIXTURE FEE IVP SCH (08:30)
[2018-05-26] MEDS ORDERED: diphenhydrAMINE 50 MG/ML VIAL IVP SCH (08:30)
[2018-05-26] MEDS ORDERED: Acetaminophen 500 MG TAB PO PRN (08:31)
[2018-05-26 09:31] VITALS: BP 141/69; TEMP 98.5
== END 2018-05-26 15:27 | disposition home or self-care (01) ==
LOC: ONC/OP 08:16
PROVIDERS: ATTEND Internal Medicine Rheumatology
DX: M06.9 Rheumatoid arthritis, unspecified (principal); Z88.2 Allergy status to sulfonamides; Z91.040 Latex allergy status
CPT/HCPCS: 96413; 96415; J2930; J7050; J9310

== ENCOUNTER 2018-09-22 08:19 | Day surgery (SDC) | payer MEDICARE, MEDICAID ==
[~2018-09-22 08:19] MED LIST changes: +ADMIXTURE FEE IVP SCH; +Acetaminophen 500 MG TAB PO PRN; +Acetaminophen 500 MG TAB PO SCH; -ISOVUE-370 76%-LOCM 1 ML ONE; +METHYLPREDNISOLONE SOD SUCC IVP SCH; +Sodium Chloride 0.9% 1,000 ML IV SCH; +[UNRECOGNIZED DRUG - OTHER] IVP SCH; +diphenhydrAMINE 25 MG CAP PO PRN; +diphenhydrAMINE 25 MG CAP PO SCH; +diphenhydrAMINE 50 MG/ML VIAL IVP PRN
[2018-09-22] MEDS ORDERED: RITUXIMAB IVPB SCH (09:00)
[2018-09-22] MEDS ORDERED: SODIUM CHLORIDE 0.9% IVPB SCH (09:00)
[2018-09-22 11:43] VITALS: TEMP 97.7
[2018-09-22 14:43] VITALS: BP 119/71
== END 2018-09-22 14:43 | disposition home or self-care (01) ==
LOC: ONC/OP 08:19
PROVIDERS: ATTEND Internal Medicine Rheumatology
DX: M05.79 Rheumatoid arthritis with rheumatoid factor of multiple sites without organ or systems involvement (principal); Z88.2 Allergy status to sulfonamides; Z88.8 Allergy status to other drugs, medicaments and biological substances; Z91.040 Latex allergy status
CPT/HCPCS: 96375; 96413; 96415; J2930; J7050; J9312; Q0163

== ENCOUNTER 2019-01-19 08:25 | Day surgery (SDC) | payer MEDICARE, MEDICAID ==
[~2019-01-19 08:25] MED LIST changes: -ADMIXTURE FEE IVP SCH; +ADMIXTURE FEE IVPB SCH; -METHYLPREDNISOLONE SOD SUCC IVP SCH; +METHYLPREDNISOLONE SOD SUCC IVPB SCH; +RITUXIMAB IVPB SCH; +SODIUM CHLORIDE 0.9% IVPB SCH; -[UNRECOGNIZED DRUG - OTHER] IVP SCH; +[UNRECOGNIZED DRUG - OTHER] IVPB SCH; +diphenhydrAMINE 50 MG/ML VIAL IVP SCH
[2019-01-19] MEDS ORDERED: Labetalol HCl 100 MG/20 ML VIAL ONE (08:34)
[2019-01-19] MEDS ORDERED: Sodium Chloride 0.9% 20 ML ONE (08:35)
[2019-01-19 08:50] VITALS: TEMP 98.1
[2019-01-19 15:59] VITALS: BP 138/63
== END 2019-01-19 15:27 | disposition home or self-care (01) ==
LOC: ONC/OP 08:25
PROVIDERS: ATTEND Internal Medicine Rheumatology
DX: M05.79 Rheumatoid arthritis with rheumatoid factor of multiple sites without organ or systems involvement (principal); Z88.2 Allergy status to sulfonamides; Z88.8 Allergy status to other drugs, medicaments and biological substances; Z91.040 Latex allergy status
CPT/HCPCS: 96413; 96415; J2930; J7050; J9312; Q0163

== ENCOUNTER 2019-02-06 06:46 | Inpatient (IN) | payer MEDICARE, MEDICAID ==
[2019-02-06 07:55] LABS: #Eosinphils 0.1 thou/uL (0.0-0.7); #Monocytes 1.2 thou/uL (0.11-0.59); %Basophils 0.1 % (0.0-1.0); %Eosinophils 0.6 % (0.0-10.0); %Lymphocytes 11.4 % (21.0-51.0); %Monocytes 6.9 % (0.0-10.0); %Neutrophils 81.1 % (42.0-75.0); Hemoglobin 14.8 g/dL (12.0-16.0); Mean Corpuscular HGB CONC 33.9 g/dL (32.0-36.0); Mean Corpuscular Hemoglobin 28.6 pg (27.0-31.0); Mean Corpuscular Volume 84.4 fL (78.0-98.0); Mean Platelet Volume 8.3 fL (7.4-10.4); Platelet Count 287 thou/uL (130-400); RBC Distribution Width 13.1 % (11.5-14.5); Red Blood Cell (RBC) Count 5.16 mill/uL (4.20-5.40); White Blood Cell (WBC) Count 17.3 thou/uL (4.8-10.8)
[2019-02-06 08:17] LABS: ALT (SGPT) 25 U/L (8-55); AST (SGOT) 19 U/L (5-34); Albumin 3.8 g/dL (3.5-5.0); Alkaline Phosphatase 88 U/L (40-150); Anion Gap 16 mmol/L (10-20); BUN (Urea Nitrogen) 15 mg/dL (9.8-20.1); Bilirubin, Total 0.5 mg/dL (0.2-1.2); Calc. Creatinine Clearance 0 mL/min (70-130); Calcium 10.3 mg/dL (7.8-10.44); Carbon Dioxide 24 mmol/L (22-29); Chloride 97 mmol/L (98-107); Estimated GFR-MDRD 68; Globulin 2.9 g/dL (2.4-3.5); Glucose 367 mg/dL (70-105); Lipase 8 U/L (8-78); Potassium 3.9 mmol/L (3.5-5.1); Protein, Total 6.7 g/dL (6.0-8.3); Sodium 133 mmol/L (136-145)
[2019-02-06 08:22] LABS: Bacteria/HPF None Seen HPF (None Seen); Bilirubin Negative (Negative); Blood, Urine Negative (Negative); Clarity Clear (Clear); Glucose, Urine (Dipstick) Greater than 1000 mg/dL (Negative); Leukocyte Negative Leu/uL (Negative); Nitrite Negative (Negative); Protein, Urine (Dipstick) 30 mg/dL (Neg-Trace); RBC/HPF 0-3 HPF (0-3); Squamous Epithelial 0-3 HPF (0-3); Urobilinogen Normal mg/dL (Less than 2); WBC/HPF 0-3 HPF (0-3)
[2019-02-06] MEDS ORDERED: Ondansetron PF 4 MG/2 ML Vial ONE (08:23)
[2019-02-06] MEDS ORDERED: Morphine 4 MG/ML VIAL ONE (08:23)
[2019-02-06 08:25] LABS: Pregnancy Test - Urine (BHCG) Negative (Negative); Pregu Control Background? CLEAR/WHITE (CLR/WHITE); Pregu Control Bar Appear? YES (CONTROL BAR); Specific Gravity 1.029 (1.002-1.036)
[2019-02-06] MEDS ORDERED: MEROPENEM 1 GM/50 ML 1 GM in Premix Bag 1 BAG IVPB SCH (09:30)
--- NOTE | 2019-02-06 10:35 | CT ---
ABDOMEN AND PELVIC CT SCAN WITH IV CONTRAST: Date; 02/06/19 HISTORY: Abdominal pain. Rectal bleeding. History of pancreatitis. COMPARISON: 03/02/18. FINDINGS: Minimal stable left lower lateral pleural thickening. 3 vessel coronary artery calcific disease. Evid ence for some fatty changes in a borderline size liver. Status post cholecystectomy without common du ct dilatation. Pancreas, spleen, and adrenal glands are unremarkable. No renal calculus or acute o bstruction. Normal appearing appendix. Abnormal colonic wall thickening from the upper right colon, i ncluding the hepatic flexure, transverse colon, splenic flexure, and left colon into the rectosigmoid region, evidence for acute colitis, with abnormal wall thickening and some mild pericolonic fat stra nding. No evidence of bowel obstruction. IMPRESSION: Evidence for acute nonspecific colitis. No evidence for other significant acute process. POS: TPC
--- NOTE | 2019-02-06 11:21 | PDOC.FPRHP ---
- History of Present Illness Chief Complaint: Abdominal pain & Rectal bleeding History of Present Illness: 53 yo CF with history of Rheumatoid arthritis, Dermatitis, Fibromyalgia, OA, Osteoprosis, DMII,HTN, HLD, and history of pancreatitis presents with complaints of diffuse abdominal pain and rectal bleeding in the toilet and on the tissue after going to the restroom. The abdominal pain started yesterday morning at around 5 am. It is a constant pressure that is a 9/10. She has taken no medications for it. She says she was able to go about her daily activities, but after dinner last night she said she felt nauseous and like she need to have a bowel movement. She said she sat on the toilet for several hours and she would have bright red blood pass every so often. She said over the span it was a large amount of bright red blood. She eventually was able to go to bed, but woke up around 11:30 last night and was unable to go to bed and then decided to come to the ER due to the pain and bleeding at 6:30 this morning. She takes Methotrexate and Rituximab for RA not for IBD. Has never been diagnosed with IBD. She has never had previous episodes of this. She did have a FIT test at 49, which she said was normal. ED Course: In the ED, she was given Morphine for pain and a rectal exam was done that showed scant blood. - Allergies/Adverse Reactions Allergies Allergy/AdvReac Type Severity Reaction Status Date / Time latex Allergy Verified 02/06/19 12:26 Sulfa (Sulfonamide Allergy Verified 02/06/19 12:26 Antibiotics) sulfamethoxazole Allergy Verified 02/06/19 12:26 [From Bactrim] trimethoprim [From Bactrim] Allergy Verified 02/06/19 12:26 - Home Medications Medication Instructions Recorded Confirmed Type DULoxetine [Cymbalta] 2 capsule PO HS 11/01/13 03/02/18 History Folic Acid 2 tab PO DAILY 11/01/13 03/03/18 History Glimepiride 8 mg PO QAM-WM 11/01/13 03/03/18 History Cholecalciferol (Vitamin D3) 50,000 unit PO Q7DAYS 02/12/15 03/03/18 History [Vitamin D3] Levothyroxine Sodium [Tirosint] 50 mcg PO DAILY 02/12/15 03/03/18 History Lisinopril 5 mg PO HS 02/12/15 03/03/18 History Metoprolol Tartrate 100 mg PO DAILY 02/12/15 03/03/18 History Ranitidine HCl 150 mg PO BID 02/12/15 03/02/18 History Aspirin 1 tab PO QAM 11/21/15 03/03/18 History Hydrochlorothiazide 2 tab PO DAILY 11/21/15 03/03/18 History Insulin Glargine,Hum.Rec.Anlog 100 unit SQ BID 11/21/15 03/03/18 History [Lantus Solostar] Methotrexate Sodium/PF 25 mg IM/IV Q7DAYS 11/21/15 03/03/18 History [Methotrexate 50 mg/2 ml Vial] [place]-3 Acid Ethyl Esters 2 gm PO BID 11/21/15 03/03/18 History Atorvastatin Calcium 80 mg PO HS 03/02/18 03/02/18 History Buprenorphine 1 patch TOP Q7DAYS 03/03/18 03/03/18 History Fluocinolone Acetonide 1 applic TOP BID 03/03/18 03/03/18 History [Fluocinolone Acetonide 0.025% Ointment] Rituximab [Rituxan] 1,000 mg IVPB Q112D 03/03/18 History - History PMHx: Type 2 diabetes, RA, OA, osteoporosis, bursitis of elbow, CAD, HTN, HLD PSHx: 3V CABG~5 years ago, Cholecystectomy, tonsillectomy, elbow surgery, FHx: Family history of breast cancer-mom, grandmother-lung cancer, grandfather- cancer, father-diabetes, htn, heart disease (CAD) Social: used to smoke (45-60 pack year history); quit after cabg, does not drink alcohol, denies recreational drugs - Review of Systems General: reports: night sweats, fatigue. denies: fever/chills Eyes: reports: vision changes (She says she needs to go to the eye doctor her glasses are out of date.) ENT: denies: rhinorrhea Respiratory: denies: cough, shortness of breath Cardiovascular: denies: chest pain, edema Gastrointestinal: reports: nausea, constipation, abdominal pain (bright red blood per rectum), GI bleeding Genitourinary: reports: incontinence (Urgency), dysuria Skin: reports: rashes (itching and red below abdomen) Musculoskeletal: reports: pain, tenderness, stiffness, arthritis/arthralgias Neurological: denies: weakness - Vital signs BP: [172/77] HR: [68] RR: [16] Tmax: [98.2] Pox: [97]% on [RA] Wt: [131.67 kg ] - Physical Exam Constitutional: NAD, awake, alert and oriented HEENT: normocephalic and atraumatic, PERRLA, EOMI, conjunctiva clear, grossly normal hearing, MMM, oropharynx clear, other (poor dentitioin) Neck: supple Chest: no-tender to palpation, other (Scar from CABG) Heart: RRR, normal S1/S2, other (Murmur present) Lungs: CTAB, no respiratory distress, no wheezing Abdomen: soft, bowel sounds present, other (Tender to palpation in all 4 quadrants.) Musculoskeletal: normal structure, normal tone, ROM grossly normal Neurological: no focal deficit, CN II-XII intact Skin: other (paniculitis) Heme/Lymphatic: no purpura, no petechia Psychiatric: normal mood and affect, intact recent and remote memory FMR H&P: Results - Labs Result Diagrams: 02/06/19 07:44 02/06/19 07:44 Lab results: WBC 17.3 thou/uL (4.8-10.8) H 02/06/19 07:44 Hgb 14.8 g/dL (12.0-16.0) 02/06/19 07:44 Hct 43.6 % (36.0-47.0) 02/06/19 07:44 MCV 84.4 fL (78.0-98.0) 02/06/19 07:44 Plt Count 287 thou/uL (130-400) 02/06/19 07:44 Neutrophils % 81.1 % (42.0-75.0) H 02/06/19 07:44 Sodium 133 mmol/L (136-145) L 02/06/19 07:44 Potassium 3.9 mmol/L (3.5-5.1) 02/06/19 07:44 Chloride 97 mmol/L (98-107) L 02/06/19 07:44 Carbon Dioxide 24 mmol/L (22-29) 02/06/19 07:44 BUN 15 mg/dL (9.8-20.1) 02/06/19 07:44 Creatinine 0.87 mg/dL (0.6-1.1) 02/06/19 07:44 Glucose 367 mg/dL (70-105) H 02/06/19 07:44 Calcium 10.3 mg/dL (7.8-10.44) 02/06/19 07:44 Total Bilirubin 0.5 mg/dL (0.2-1.2) 02/06/19 07:44 AST 19 U/L (5-34) 02/06/19 07:44 ALT 25 U/L (8-55) 02/06/19 07:44 Alkaline Phosphatase 88 U/L (40-150) 02/06/19 07:44 Serum Total Protein 6.7 g/dL (6.0-8.3) 02/06/19 07:44 Albumin 3.8 g/dL (3.5-5.0) 02/06/19 07:44 Lipase 8 U/L (8-78) 02/06/19 07:44 Urine Ketones 10 mg/dL (Negative) A 02/06/19 08:00 Urine Blood Negative (Negative) 02/06/19 08:00 Urine Nitrite Negative (Negative) 02/06/19 08:00 Ur Leukocyte Esterase Negative Ozzie/uL (Negative) 02/06/19 08:00 Urine RBC 0-3 HPF (0-3) 02/06/19 08:00 Urine WBC 0-3 HPF (0-3) 02/06/19 08:00 Ur Squamous Epith Cells 0-3 HPF (0-3) 02/06/19 08:00 Urine Bacteria None Seen HPF (None Seen) 02/06/19 08:00 FMR H&P: A/P - Problem List (1) Colitis Current Visit: Yes Status: Acute Priority: High Code(s): K52.9 - NONINFECTIVE GASTROENTERITIS AND COLITIS, UNSPECIFIED (2) Rheumatoid arthritis Current Visit: Yes Status: Chronic Priority: Medium Code(s): M06.9 - RHEUMATOID ARTHRITIS, UNSPECIFIED Qualifiers: Rheumatoid arthritis location: multiple sites Rheumatoid factor presence: unspecified presence Qualified Code(s): M06.9 - Rheumatoid arthritis, unspecified (3) Diabetes type 2, uncontrolled Current Visit: No Onset Date: Unknown Status: Chronic Priority: High Code(s): E11.65 - TYPE 2 DIABETES MELLITUS WITH HYPERGLYCEMIA Qualifiers: Glycemic state: with hyperglycemia Qualified Code(s): E11.65 - Type 2 diabetes mellitus with hyperglycemia (4) HLD (hyperlipidemia) Current Visit: No Status: Acute Priority: Low Code(s): E78.5 - HYPERLIPIDEMIA, UNSPECIFIED Qualifiers: Hyperlipidemia type: unspecified Qualified Code(s): E78.5 - Hyperlipidemia , unspecified (5) 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 Current Visit: No Status: Chronic Priority: Low Code(s): G57.92 - UNSPECIFIED MONONEUROPATHY OF LEFT LOWER LIMB (6) HTN (hypertension) Current Visit: No Status: Chronic Priority: Medium Code(s): I10 - ESSENTIAL (PRIMARY) HYPERTENSION Qualifiers: Hypertension type: essential hypertension Qualified Code(s): I10 - Essential (primary) hypertension (7) Depression Current Visit: No Onset Date: Unknown Status: Chronic Priority: Low Code (s): F32.9 - MAJOR DEPRESSIVE DISORDER, SINGLE EPISODE, UNSPECIFIED Qualifiers: Depression Type: unspecified Qualified Code(s): F32.9 - Major depressive disorder, single episode, unspecified (8) Panniculitis Current Visit: Yes Status: Chronic Priority: Medium Code(s): M79.3 - PANNICULITIS, UNSPECIFIED - Plan 53 yo CF with history of DMII, Pancreatitis, RA, OA, HTN, and CAD presents with abdominal pain & rectal bleeding. 1. Colitis - New. No prior hx. MEGHAN + for trace blood. - Admitted to medicine, inpt and consulted GI appreciate their recommendations. - Afebrile, but does have a leukocytosis. with WBC 17. - CT shows nonspecific colitis through out the colon. - Ordered stool studies, including c. difficile, as well as an ESR, CRP, Lipase , and Lipid panel. CBC and CMP in am. - Morphine 4mg q4h prn pain. - DDX: IBD, infectious, cancer 2. DM Type II - Restart home meds once we get her home med list - Ordered hba1c and sliding scale prn and hypoglycemia protocol. 3. HTN - Hydralazine prn until we get a medication list from the patient. 4. HLD - Will continue home meds once we receive list. 5. RA - Will continue home meds once we receive list. 6. Depression - Will continue home meds once we receive list. 7. Panniculitis - Ordered Nystatin powder prn. Diet: NPO until we get GI recs. If they wait till tomorrow, will give clear liquids tonight and make NPO at midnight. DVT Prophylaxis: SCDs Code Status: Full Code Dispo: Pt requires Abx and will need GI recs. Plan is to stay >48 hours. Disposition/LOS: Pt requires IV Abx and needs a colonoscopy. Length of stay > 2 days. FMR H&P: Upper Level - Pertinent history 53 yo F with abdominal pain, diffuse, and new onset hematemesis and pmhx of RA, and findings on CT of diffuse colonic inflammation admitted for diffuse colitis. Vitals: hypertensive PE: diffuse abdominal tenderness, no guarding or rigidity MEGHAN trace blood Labs: wbc 17.3 81.9% PMNs Abdominal CT: diffuse colitis A/P: A/P: #Colitis- -Consulted GI. Ordered stool studies, including c. difficile, as well as an ESR , CRP. Morphine 4mg q4h prn pain. DDX: IBD, infectious, colon cancer #DM- -restart home meds #HTN- -hydralazine prn until we get a medication list from the patient. #HLD - Will continue home meds #RA - Will continue home meds #Depression - Will continue home meds #Panniculitis -nystatin powder suzan CODE: full DVT: SCDs Dispo: >2 midnights - Plan Date/Time: 02/06/19 1120 I, [], have evaluated this patient and agree with findings/plan as outlined by staff internist office based only resident. Pertinent changes/additions are listed here.
[2019-02-06 12:01] VITALS: BMI 46.8
[2019-02-06] MEDS ORDERED: Ondansetron PF 4 MG/2 ML Vial IVP PRN (12:30)
[2019-02-06] MEDS ORDERED: Ondansetron ODT 4 MG TAB SL PRN (12:30)
[2019-02-06] MEDS ORDERED: Morphine 2 MG/ML SYRINGE SLOW IVP PRN (12:31)
[2019-02-06] MEDS: Sodium Chloride 0.9% 1,000 ML IV SCH (12:49)
[2019-02-06] MEDS ORDERED: Senokot S 8.6-50 MG TAB PO PRN (13:26)
[2019-02-06] MEDS ORDERED: Acetaminophen 325 MG TAB PO PRN (13:26)
[2019-02-06] MEDS ORDERED: ISOVUE-370 76%-LOCM 1 ML ONE (13:35)
[2019-02-06] MEDS ORDERED: RITUXIMAB 1000 MG IVPB SCH (13:45)
[2019-02-06] MEDS ORDERED: hydrALAZINE 20 MG/ML VIAL SLOW IVP PRN (13:47)
[2019-02-06] MEDS ORDERED: Dextrose 50% Abboject 50 ML SYRINGE SLOW IVP PRN (14:42)
[2019-02-06] MEDS ORDERED: Dextrose 5% in Water 1,000 ML IV PRN (14:42)
[2019-02-06] MEDS ORDERED: Nystatin Powder 15 GM BOT TOP PRN (14:56)
[2019-02-06 15:34] LABS: Cardiac Risk 5.9 (Less than 4.5)
[2019-02-06] MEDS: HumaLOG 300 UNITS/3 ML VIAL SC PRN ×2 (18:31→22:00)
[2019-02-06] MEDS ORDERED: Promethazine 25 MG TAB PO PRN (19:35)
[2019-02-06] MEDS ORDERED: INSULIN GLARGINE HUM REC ANLOG 100 UNIT SQ SCH (21:00)
[2019-02-06] MEDS ORDERED: Insulin Glargine 100 UNITS in Pre-Filled Syringe SC SCH (21:00)
[2019-02-06] MEDS: Morphine 4 MG/ML VIAL SLOW IVP PRN (21:03)
[2019-02-06] MEDS: Atorvastatin Calcium 40 MG TAB PO SCH (21:13)
[2019-02-06] MEDS: DULoxetine 60 MG CAP PO SCH (21:16)
[2019-02-06] MEDS: Trospium 20 MG TAB PO SCH (21:16)
[2019-02-06] MEDS: Famotidine 20 MG TAB PO SCH (21:16)
[2019-02-06] MEDS: Lisinopril 5 MG TAB PO SCH (21:17)
[2019-02-06] MEDS: Azithromycin 500 MG in Sodium Chloride 0.9% 250 ML 250 ML IVPB SCH (21:20)
[2019-02-07] MEDS: Sodium Chloride 0.9% 1,000 ML IV SCH ×3 (00:58→21:14)
--- NOTE | 2019-02-07 02:41 | CON ---
DATE OF CONSULTATION: 02/06/2019 CHIEF COMPLAINT: Abdominal pain and bloody diarrhea. HISTORY OF PRESENT ILLNESS: Ms. Gallagher is a 53-year-old woman, who yesterday evening about an hour after eating supper, developed acute onset of cramping diffuse abdominal pain, which has remained continuous since then. Associated with that, she has had numerous liquidy red bloody stools throughout the night last night and several times through the day today. The stool output is mostly blood and mucus. She has had nausea but no vomiting. No fever, but her white blood cell count was noted to be elevated on presentation. She took antibiotics for an upper respiratory or sinus infection about a month ago. She thinks this was doxycycline. She has had no prior history of similar events. She has had no chronic problems with her GI tract prior to this. She did have some constipation with hard stools over the preceding five days. Her weight has been stable. She has had no prior colonoscopy. PAST MEDICAL HISTORY: Rheumatoid arthritis, on methotrexate and rituximab; coronary artery disease; diabetes mellitus, type 2; osteoporosis; osteoarthritis; hypertension; and hyperlipidemia. PAST SURGICAL HISTORY: Coronary artery bypass graft, cholecystectomy, tonsillectomy, and elbow surgery. FAMILY HISTORY: She had two grandparents with lung cancer. Her mom had breast cancer. SOCIAL HISTORY: She quit smoking years ago. No alcohol or prior drug use. ALLERGIES: BACTRIM. MEDICATIONS: Prior to admission, 1. Duloxetine. 2. Folic acid. 3. Glimepiride. 4. Cholecalciferol. 5. Levothyroxine. 6. Lisinopril. 7. Metoprolol. 8. Ranitidine. 9. Aspirin. 10. Hydrochlorothiazide. 11. Insulin. 12. Methotrexate. 13. [place]-3 fatty acid. 14. Atorvastatin. 15. Buprenorphine. 16. Rituximab. 17. Fluocinolone topical. Currently as an inpatient, she is receiving, 1. Famotidine. 2. Folic acid. 3. Hydrochlorothiazide. 4. Levothyroxine. 5. Lisinopril. 6. Methotrexate. 7. Metoprolol. 8. Morphine as needed. 9. Insulin. 10. Rituximab. REVIEW OF SYSTEMS: Negative x10 systems reviewed except as stated in the history of present illness. PHYSICAL EXAMINATION: VITAL SIGNS: Temperature 98.0, pulse 70, and blood pressure 169/74. GENERAL: She is in no acute distress. Alert and oriented x3. HEENT: Eyes have no scleral icterus. Oropharynx is clear without lesions. She has dry mucous membranes. LUNGS: Clear to auscultation bilaterally. HEART: Regular rate and rhythm without murmur. ABDOMEN: Soft, mildly diffusely tender without guarding. Bowel sounds are present. EXTREMITIES: No lower extremity edema. NEURO: Cranial nerves are grossly intact. LABORATORY DATA: White blood cell count 17.3, hemoglobin 14.8, and platelets 287. Creatinine 0.87, bilirubin 0.5, AST 19, ALT 25, alkaline phosphatase 88, albumin 3.8, and CRP 2.5. Hemoglobin A1c is 11. IMAGING: She had a CT scan of the abdomen and pelvis performed this morning. This showed colon wall thickening including the hepatic flexure, transverse colon, splenic flexure, and left colon down to the rectosigmoid region with some pericolonic fat stranding as well. IMPRESSION: 1. Acute infectious colitis. She has acute onset of abdominal pain and bloody diarrhea. There is no prior history of GI symptoms or inflammatory bowel disease. The distribution is diffuse throughout the colon, making ischemic colitis less likely. Her white blood cell count is elevated. She did take antibiotics 3 to 4 weeks ago for an upper respiratory infection, possibly doxycycline. 2. She is currently immunosuppressed with rituximab and methotrexate for rheumatoid arthritis. 3. Diabetes mellitus, poorly controlled with hemoglobin A1c of 11. 4. Coronary artery disease, status post coronary artery bypass graft. 5. Bloody diarrhea. Recommendations;. a. Stool studies. b. If the C diff comes back positive, then we will treat with oral vancomycin. c. If the C diff comes back negative, then given the bloody diarrhea, it would be appropriate to treat empirically with antibiotics at this point. We are awaiting the stool culture as well. RECOMMENDATIONS: 1. The C diff is now back and is negative for antigen and toxin. 2. We will start azithromycin given the bloody mucoid diarrhea with severe symptoms and immunosuppression. 3. Await stool culture. 4. I will hold colonoscopy at this point given that the most likely etiology is infectious. She should undergo screening colonoscopy in the future as an outpatient if this acute process resolves. Ultimately, if she fails to improve, then more immediate endoscopy could be considered. Job ID: [id number]
[2019-02-07] MEDS: Levothyroxine Sodium 50 MCG TAB PO SCH (03:18)
[2019-02-07] MEDS: Morphine 4 MG/ML VIAL SLOW IVP PRN ×3 (03:19→16:58)
[2019-02-07 04:51] LABS: #Eosinphils 0.2 thou/uL (0.0-0.7); #Lymphocytes 2.6 thou/uL (1.20-3.40); #Monocytes 1.1 thou/uL (0.11-0.59); #Neutrophils 12.1 thou/uL (1.40-6.50); %Basophils 0.3 % (0.0-1.0); %Eosinophils 1.1 % (0.0-10.0); %Lymphocytes 16.2 % (21.0-51.0); %Monocytes 6.7 % (0.0-10.0); %Neutrophils 75.7 % (42.0-75.0); Hemoglobin 14.1 g/dL (12.0-16.0); Mean Corpuscular HGB CONC 33.3 g/dL (32.0-36.0); Mean Corpuscular Hemoglobin 28.4 pg (27.0-31.0); Mean Corpuscular Volume 85.2 fL (78.0-98.0); Mean Platelet Volume 8.4 fL (7.4-10.4); Platelet Count 256 thou/uL (130-400); Red Blood Cell (RBC) Count 4.98 mill/uL (4.20-5.40)
[2019-02-07 05:10] LABS: Anion Gap 11 mmol/L (10-20); BUN (Urea Nitrogen) 10 mg/dL (9.8-20.1); Calc. Creatinine Clearance 171 mL/min (70-130); Calcium 9.3 mg/dL (7.8-10.44); Carbon Dioxide 29 mmol/L (22-29); Chloride 100 mmol/L (98-107); Estimated GFR-MDRD 75; Glucose 280 mg/dL (70-105); Potassium 3.9 mmol/L (3.5-5.1); Sodium 136 mmol/L (136-145)
--- NOTE | 2019-02-07 05:54 | PDOC.FM ---
- Subjective Subjective: Has abdominal pain in the mid lower abdomen. She also feels like she needs to have a bowel movement. - Objective MAR Reviewed: Yes Vital Signs & Weight: Vital Signs (12 hours) Temp Pulse Resp BP BP BP Pulse Ox 02/07/19 03:20 98.2 F 110 H 20 156/83 H 97 02/06/19 23:08 98.2 F 91 16 177/88 H 95 02/06/19 21:17 77 152/66 H 02/06/19 19:22 98.2 F 77 15 152/66 H 96 Weight Weight 131.678 kg I&O: 02/05/19 02/06/19 02/07/19 06:59 06:59 06:59 Intake Total 242 Balance 242 Result Diagrams: 02/07/19 04:06 02/07/19 04:06 Phys Exam - Physical Examination Constitutional: NAD HEENT: PERRLA, moist MMs Neck: no nodes Respiratory: clear to auscultation bilateral Cardiovascular: RRR (systolic flow murmur) Gastrointestinal: soft (tender to palpation in mid-lower abdomen.), positive bowel sounds (slow bowel sounds) Musculoskeletal: no edema Neurological: non-focal, moves all 4 limbs Dx/Plan (1) Colitis Code(s): K52.9 - NONINFECTIVE GASTROENTERITIS AND COLITIS, UNSPECIFIED Status : Acute (2) Rheumatoid arthritis Code(s): M06.9 - RHEUMATOID ARTHRITIS, UNSPECIFIED Status: Chronic Qualifiers: Rheumatoid arthritis location: multiple sites Rheumatoid factor presence: unspecified presence Qualified Code(s): M06.9 - Rheumatoid arthritis, unspecified (3) Diabetes type 2, uncontrolled Code(s): E11.65 - TYPE 2 DIABETES MELLITUS WITH HYPERGLYCEMIA Status: Chronic Qualifiers: Glycemic state: with hyperglycemia Qualified Code(s): E11.65 - Type 2 diabetes mellitus with hyperglycemia (4) HLD (hyperlipidemia) Code(s): E78.5 - HYPERLIPIDEMIA, UNSPECIFIED Status: Acute Qualifiers: Hyperlipidemia type: unspecified Qualified Code(s): E78.5 - Hyperlipidemia , unspecified (5) 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 Code(s): G57.92 - UNSPECIFIED MONONEUROPATHY OF LEFT LOWER LIMB Status: Chronic (6) HTN (hypertension) Code(s): I10 - ESSENTIAL (PRIMARY) HYPERTENSION Status: Chronic Qualifiers: Hypertension type: essential hypertension Qualified Code(s): I10 - Essential (primary) hypertension (7) Depression Code(s): F32.9 - MAJOR DEPRESSIVE DISORDER, SINGLE EPISODE, UNSPECIFIED Status : Chronic Qualifiers: Depression Type: unspecified Qualified Code(s): F32.9 - Major depressive disorder, single episode, unspecified (8) Panniculitis Code(s): M79.3 - PANNICULITIS, UNSPECIFIED Status: Chronic - Plan Plan: 53 yo CF with history of DMII, Pancreatitis, RA, OA, HTN, and CAD presents with abdominal pain & rectal bleeding. 1. Colitis - New. No prior hx. MEGHAN + for trace blood. - Hx of Abx use 3-4 wks ago due to URI. - Admitted to medicine, inpt. - Consulted Dr. Soto (02/06) with GI, appreciate their recommendations. Will await stool culture. - Will treat empirically with Azithromycin (02/06) at this time. - Afebrile, but does have a leukocytosis with WBC 17 which is down trending to 16 today. - CT shows nonspecific colitis through out the colon. - Ordered stool studies, including c. difficile, as well as an ESR, CRP, Lipase , and Lipid panel. - C. Diff was negative, Shiga was negative. Campylobacter and stool cultures still pending. Lipase was 40. ESR was 27. Lipase was 40. CRP was 2.52. - Morphine 4mg q4h prn pain. Given Bentyl prn for GI cramping and suzan miralax. - DDX: IBD, infectious, cancer 2. DM Type II - SSI moderate with hypoglycemia protocol and receiving Toujeo. - A1C: 11% 3. HTN - Continue home meds: Lisinopril, HCTZ, Metoprolol. - Hydralazine prn for SBP > 180 4. HLD - Continue home med: Atorvastatin 5. RA - Continue home med: Methotrexate 6. Depression - Continue home med: Cymbalta 7. Panniculitis - Ordered Nystatin powder prn. Diet: Advance as tolerated to CC diet. IVF: NS @ 100 ml/h DVT Prophylaxis: SCDs GI Prophylaxis: Pepcid Code Status: Full Code Dispo: Pt requires Abx and will need GI recs. Plan is to stay >48 hours. Disposition/LOS: Will see how well pt tolerates po intake. We are going to watch her and see if abdominal pain resolves, and possibly d/c tomorrow pending GI recs.
[2019-02-07] MEDS: HumaLOG 300 UNITS/3 ML VIAL SC PRN ×4 (06:22→21:11)
[2019-02-07] MEDS ORDERED: INSULIN GLARGINE SC SCH (09:00)
[2019-02-07] MEDS ORDERED: INSULIN GLARGINE HUM REC ANLOG SQ SCH (09:00)
[2019-02-07] MEDS ORDERED: PRE FILLED SC SCH (09:00)
[2019-02-07] MEDS ORDERED: Metoprolol Tartrate 100 MG TAB PO SCH (09:00)
[2019-02-07] MEDS: Hydrochlorothiazide 25 MG TAB PO SCH (09:16)
[2019-02-07] MEDS: Trospium 20 MG TAB PO SCH ×2 (09:16→21:09)
[2019-02-07] MEDS: Famotidine 20 MG TAB PO SCH ×2 (09:16→21:09)
[2019-02-07] MEDS: Fish Oil 1,000 MG CAP PO SCH (09:17)
[2019-02-07] MEDS: Folic Acid 1 MG TAB PO SCH (09:17)
--- NOTE | 2019-02-07 13:04 | PRG ---
DATE OF SERVICE: 02/07/2019 Ms. Gallagher was seen in consultation by Dr. Soto. He believes that she has an acute infectious diarrhea and has recommended the stool studies which we are awaiting. He also suggested that she undergo screening colonoscopy in the future as an outpatient. Her stool studies so far are negative for E coli shiga toxin. Her C diff antigen and toxins are negative. We will advance diet and continue IV fluids. Job ID: [id number]
--- NOTE | 2019-02-07 15:53 | PRG ---
DATE OF SERVICE: 02/07/2019 SUBJECTIVE: Ms. Gallagher continues to have aching diffuse abdominal pain. She had 3 small volume, liquidy, bloody stools today. This has improved from yesterday overall. OBJECTIVE: VITAL SIGNS: She has remained afebrile. Temperature 98.2, pulse 70, blood pressure 109/54. GENERAL: She is in no acute distress. Alert and oriented x3. LUNGS: Clear to auscultation bilaterally. HEART: Regular rate and rhythm without murmur. ABDOMEN: Soft, tender to palpation diffusely without guarding. Bowel sounds are present. EXTREMITIES: No lower extremity edema. LABORATORY DATA: White blood cell count 16, hemoglobin 14.1, platelets 256. Creatinine 0.8. C. diff was negative. Campylobacter antigen and stool culture are pending. Shiga toxin was negative. IMPRESSION: 1. Bloody diarrhea secondary to acute infectious colitis. Final culture is pending, however, still may end up negative as the sensitivity be limited. She is being treated empirically with a 3-day course of azithromycin. This is in light of the bloody mucoid diarrhea with severe symptoms, high white blood cell count, and immune suppression. 2. Chronic immunosuppression with rituximab and methotrexate for rheumatoid arthritis. 3. Diabetes mellitus and coronary artery disease. RECOMMENDATIONS: 1. Await final stool culture. 2. Continue azithromycin 500 mg daily x3 days. 3. Continue supportive care with fluids and liquid diet and advance her diet as she tolerates. Job ID: [id number]
[2019-02-07] MEDS: Azithromycin 500 MG in Sodium Chloride 0.9% 250 ML 250 ML IVPB SCH (19:46)
[2019-02-07] MEDS: Polyethylene Glycol 3350 17 GM Packet PO SCH (19:47)
[2019-02-07] MEDS: Lisinopril 5 MG TAB PO SCH (20:22)
[2019-02-07] MEDS: Metoprolol Tartrate 100 MG TAB PO SCH (20:24)
[2019-02-07] MEDS: Atorvastatin Calcium 40 MG TAB PO SCH (21:09)
[2019-02-07] MEDS: DULoxetine 60 MG CAP PO SCH (21:09)
[2019-02-08 04:34] LABS: #Eosinphils 0.3 thou/uL (0.0-0.7); #Lymphocytes 3.6 thou/uL (1.20-3.40); #Monocytes 1.2 thou/uL (0.11-0.59); #Neutrophils 11.2 thou/uL (1.40-6.50); %Basophils 0.1 % (0.0-1.0); %Eosinophils 1.7 % (0.0-10.0); %Lymphocytes 22.1 % (21.0-51.0); %Monocytes 7.3 % (0.0-10.0); %Neutrophils 68.8 % (42.0-75.0); Hemoglobin 13.3 g/dL (12.0-16.0); Mean Corpuscular HGB CONC 33.2 g/dL (32.0-36.0); Mean Corpuscular Hemoglobin 28.8 pg (27.0-31.0); Mean Corpuscular Volume 86.7 fL (78.0-98.0); Platelet Count 251 thou/uL (130-400); RBC Distribution Width 13.1 % (11.5-14.5); Red Blood Cell (RBC) Count 4.61 mill/uL (4.20-5.40); White Blood Cell (WBC) Count 16.3 thou/uL (4.8-10.8)
[2019-02-08 04:58] LABS: Anion Gap 13 mmol/L (10-20); BUN (Urea Nitrogen) 9 mg/dL (9.8-20.1); Calc. Creatinine Clearance 187 mL/min (70-130); Calcium 8.9 mg/dL (7.8-10.44); Carbon Dioxide 23 mmol/L (22-29); Chloride 103 mmol/L (98-107); Estimated GFR-MDRD 84; Glucose 129 mg/dL (70-105); Potassium 3.4 mmol/L (3.5-5.1); Sodium 136 mmol/L (136-145)
[2019-02-08] MEDS: Levothyroxine Sodium 50 MCG TAB PO SCH (05:23)
--- NOTE | 2019-02-08 05:37 | PDOC.FM ---
- Subjective Subjective: Pt says abdominal pain is overall improved but still hurting in descending colon region. She has left lower back pain but it is chronic condition and no CVA tenderness present. She is sleeping and eating well. Still hasn't had a BM. - Objective MAR Reviewed: Yes Vital Signs & Weight: Vital Signs (12 hours) Temp Pulse Resp BP BP Pulse Ox 02/08/19 04:09 98.5 F 83 18 130/76 95 02/07/19 23:46 98.3 F 83 16 110/58 L 98 02/07/19 20:22 75 99/59 L 02/07/19 19:46 96 02/07/19 19:11 98.2 F 75 16 99/59 L 96 Weight Weight 131.678 kg I&O: 02/06/19 02/07/19 02/08/19 06:59 06:59 06:59 Intake Total 242 3252 Balance 242 3252 Result Diagrams: 02/08/19 04:16 02/08/19 04:16 Phys Exam - Physical Examination Constitutional: NAD HEENT: PERRLA, moist MMs Neck: no nodes Respiratory: clear to auscultation bilateral Cardiovascular: RRR (Systolic murmur heard in pulmonic region.) Gastrointestinal: soft (Some abdominal tenderness on the left in descending colon region but overall improved.) Musculoskeletal: no edema, pulses present Neurological: normal sensation Lymphatic: no nodes Psychiatric: normal affect, A&O x 3 Deviation from normal: Rash below panus Dx/Plan (1) Colitis Code(s): K52.9 - NONINFECTIVE GASTROENTERITIS AND COLITIS, UNSPECIFIED Status : Acute (2) Rheumatoid arthritis Code(s): M06.9 - RHEUMATOID ARTHRITIS, UNSPECIFIED Status: Chronic Qualifiers: Rheumatoid arthritis location: multiple sites Rheumatoid factor presence: unspecified presence Qualified Code(s): M06.9 - Rheumatoid arthritis, unspecified (3) Diabetes type 2, uncontrolled Code(s): E11.65 - TYPE 2 DIABETES MELLITUS WITH HYPERGLYCEMIA Status: Chronic Qualifiers: Glycemic state: with hyperglycemia Qualified Code(s): E11.65 - Type 2 diabetes mellitus with hyperglycemia (4) HLD (hyperlipidemia) Code(s): E78.5 - HYPERLIPIDEMIA, UNSPECIFIED Status: Acute Qualifiers: Hyperlipidemia type: unspecified Qualified Code(s): E78.5 - Hyperlipidemia , unspecified (5) 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 Code(s): G57.92 - UNSPECIFIED MONONEUROPATHY OF LEFT LOWER LIMB Status: Chronic (6) HTN (hypertension) Code(s): I10 - ESSENTIAL (PRIMARY) HYPERTENSION Status: Chronic Qualifiers: Hypertension type: essential hypertension Qualified Code(s): I10 - Essential (primary) hypertension (7) Depression Code(s): F32.9 - MAJOR DEPRESSIVE DISORDER, SINGLE EPISODE, UNSPECIFIED Status : Chronic Qualifiers: Depression Type: unspecified Qualified Code(s): F32.9 - Major depressive disorder, single episode, unspecified (8) Panniculitis Code(s): M79.3 - PANNICULITIS, UNSPECIFIED Status: Chronic - Plan Plan: 53 yo CF with history of DMII, Pancreatitis, RA, OA, HTN, and CAD presents with abdominal pain & rectal bleeding. 1. Colitis - New. No prior hx. MEGHAN + for trace blood. - Hx of Abx use 3-4 wks ago due to URI. - Consulted Dr. Soto (02/06) with GI, appreciate their recommendations. - Will treat empirically with Azithromycin (02/06) x 3 days, so last dose is today. - Afebrile, but does have a leukocytosis with WBC 17 on admission, which is 16.3 today. - CT shows nonspecific colitis through out the colon. - C. Diff was negative, Shiga was negative. Campylobacter and stool cultures still pending. - Stool culture (prelim): Normal enteric chantell with no E. coli O157 present. - Lipase was 40. ESR was 27. Lipase was 40. CRP was 2.52. - Morphine 4mg q4h prn pain. Given Bentyl prn for GI cramping and suzan miralax. - DDX: IBD, infectious, cancer 2. DM Type II - SSI moderate with hypoglycemia protocol and receiving Toujeo. - A1C: 11% - BG: Are trending from 100-200s now compared to 300s on admission. 3. HTN - BP 99/59 overnight, but last reading 130/76. - Will continue home meds: Lisinopril, HCTZ, Metoprolol - Monitoring BPs throughout the day. 4. HLD - Continue home med: Atorvastatin 5. RA - Continue home med: Methotrexate 6. Depression - Continue home med: Cymbalta 7. Panniculitis - Ordered Nystatin powder prn. Diet: CC diet. IVF: None DVT Prophylaxis: SCDs GI Prophylaxis: Pepcid Code Status: Full Code Dispo: Pending final stool Cx and receiving last dose of Abx today. Will D/C if those results come back per Dr. Soto's recs.
[2019-02-08] MEDS: Sodium Chloride 0.9% 1,000 ML IV SCH (09:14)
[2019-02-08] MEDS: Dicyclomine 20 MG TAB PO PRN ×2 (09:15→20:41)
[2019-02-08] MEDS: Fish Oil 1,000 MG CAP PO SCH (09:15)
[2019-02-08] MEDS: Folic Acid 1 MG TAB PO SCH (09:15)
[2019-02-08] MEDS: Trospium 20 MG TAB PO SCH ×2 (09:15→20:41)
[2019-02-08] MEDS: Famotidine 20 MG TAB PO SCH ×2 (09:15→20:41)
[2019-02-08] MEDS: Hydrochlorothiazide 25 MG TAB PO SCH (09:19)
[2019-02-08] MEDS: Metoprolol Tartrate 100 MG TAB PO SCH ×2 (09:20→20:41)
--- NOTE | 2019-02-08 12:23 | PRG ---
DATE OF SERVICE: 02/08/2019 Ms. Gallagher is feeling better and tolerating her liquid diet. Her stool studies are so far negative and we are awaiting the finality of these reports. Clinically improved with minimal abdominal pain and no diarrhea. Job ID: [id number]
[2019-02-08] MEDS ORDERED: Insulin Glargine 120 UNITS in Pre-Filled Syringe 1 EACH SC SCH (13:00)
[2019-02-08] MEDS: Nystatin Powder 15 GM BOT TOP SCH ×2 (13:52→21:53)
[2019-02-08] MEDS: HumaLOG 300 UNITS/3 ML VIAL SC PRN ×2 (18:27→20:42)
[2019-02-08] MEDS: DULoxetine 60 MG CAP PO SCH (20:40)
[2019-02-08] MEDS: Lisinopril 5 MG TAB PO SCH (20:41)
[2019-02-08] MEDS: Polyethylene Glycol 3350 17 GM Packet PO SCH (20:41)
[2019-02-08] MEDS: Atorvastatin Calcium 40 MG TAB PO SCH (20:41)
[2019-02-08] MEDS: Azithromycin 500 MG in Sodium Chloride 0.9% 250 ML 250 ML IVPB SCH (20:45)
--- NOTE | 2019-02-08 21:23 | PRG ---
DATE OF SERVICE: 02/08/2019 SUBJECTIVE: Ms. Gallagher is feeling better overall. She is tolerating some oral intake, but still having some nausea and mild abdominal pain. She has had no stool output for 2 days now. OBJECTIVE: VITAL SIGNS: Temperature 98.7, pulse 90, blood pressure 129/71. GENERAL: She is in no acute distress. Alert and oriented x3. LUNGS: Clear to auscultation bilaterally. HEART: Regular rate and rhythm without murmur. ABDOMEN: Soft. Mild tenderness in the lower abdomen without guarding. Bowel sounds are present. EXTREMITIES: No lower extremity edema. LABORATORY DATA: White blood cell count 16.3, hemoglobin 13.3, platelets 251. Creatinine 0.73. IMPRESSION: Acute infectious colitis. Her stool studies have been negative. However, her clinical picture still most consistent with an acute infectious colitis. She has received 3 days of azithromycin now. She is slowly clinically improving. RECOMMENDATIONS: 1. We will continue to advance her diet as she tolerates. She has completed her empiric antibiotics for the bloody, mucousy diarrhea. 2. She should be ready to discharge home tomorrow. She will need to follow up in GI clinic once this acute episode resolves, then we can plan for screening colonoscopy in around a month. Job ID: [id number]
--- NOTE | 2019-02-08 21:35 | PDOC.FM ---
- Subjective Subjective: She said she ate eggs last night and did not feel nauseous. She said she had some mild cramping overnight, but it was relieved with Bentyl. - Objective MAR Reviewed: Yes Vital Signs & Weight: Vital Signs (12 hours) Temp Pulse Resp BP BP BP Pulse Ox 02/08/19 20:41 90 129/71 02/08/19 20:36 90 129/71 02/08/19 19:04 98.7 F 89 12 120/57 L 97 02/08/19 15:17 98.8 F 90 12 100/50 L 93 L 02/08/19 11:51 98.2 F 89 18 129/61 93 L Weight Weight 131.678 kg I&O: 02/07/19 02/08/19 02/09/19 06:59 06:59 06:59 Intake Total 242 3252 Balance 242 3252 Result Diagrams: 02/09/19 04:06 02/09/19 04:06 Phys Exam - Physical Examination Constitutional: NAD HEENT: PERRLA, moist MMs Neck: supple Respiratory: clear to auscultation bilateral Cardiovascular: RRR blowing systolic murmur Gastrointestinal: soft, non-tender Musculoskeletal: no edema, pulses present Neurological: non-focal, moves all 4 limbs Lymphatic: no nodes Psychiatric: normal affect, A&O x 3 Deviation from normal: Rash under pannus Dx/Plan (1) Colitis Code(s): K52.9 - NONINFECTIVE GASTROENTERITIS AND COLITIS, UNSPECIFIED Status : Acute (2) Rheumatoid arthritis Code(s): M06.9 - RHEUMATOID ARTHRITIS, UNSPECIFIED Status: Chronic Qualifiers: Rheumatoid arthritis location: multiple sites Rheumatoid factor presence: unspecified presence Qualified Code(s): M06.9 - Rheumatoid arthritis, unspecified (3) Diabetes type 2, uncontrolled Code(s): E11.65 - TYPE 2 DIABETES MELLITUS WITH HYPERGLYCEMIA Status: Chronic Qualifiers: Glycemic state: with hyperglycemia Qualified Code(s): E11.65 - Type 2 diabetes mellitus with hyperglycemia (4) HLD (hyperlipidemia) Code(s): E78.5 - HYPERLIPIDEMIA, UNSPECIFIED Status: Acute Qualifiers: Hyperlipidemia type: unspecified Qualified Code(s): E78.5 - Hyperlipidemia , unspecified (5) 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 Code(s): G57.92 - UNSPECIFIED MONONEUROPATHY OF LEFT LOWER LIMB Status: Chronic (6) HTN (hypertension) Code(s): I10 - ESSENTIAL (PRIMARY) HYPERTENSION Status: Chronic Qualifiers: Hypertension type: essential hypertension Qualified Code(s): I10 - Essential (primary) hypertension (7) Depression Code(s): F32.9 - MAJOR DEPRESSIVE DISORDER, SINGLE EPISODE, UNSPECIFIED Status : Chronic Qualifiers: Depression Type: unspecified Qualified Code(s): F32.9 - Major depressive disorder, single episode, unspecified (8) Panniculitis Code(s): M79.3 - PANNICULITIS, UNSPECIFIED Status: Chronic - Plan Plan: 53 yo CF with history of DMII, Pancreatitis, RA, OA, HTN, and CAD presents with abdominal pain & rectal bleeding. 1. Infectious Colitis - New. No prior hx. MEGHAN + for trace blood. - Hx of Abx use 3-4 wks ago due to URI. - Consulted Dr. Soto (02/06) with GI, appreciate their recommendations. - Last dose of Azithromycin was yesterday. - CT shows nonspecific colitis through out the colon. - WBC: 17 > 16 > 16.3 > 13.6 - Lipase was 40. ESR was 27. Lipase was 40. CRP was 2.52. - She is taking Bentyl for GI cramping with relief. - No normal BM since a week prior to admission, so Miralax is being given and will d/c her with it. - E coli, Shiga, Campylobacter, and stool culture all came back negative. 2. DM Type II - Increased her Tujeo to 120 U yesterday. - A1C: 11% - BG: Are trending from 100-200s now compared to 300s on admission. 3. HTN - BPs were low yesterday, so we held her home BP meds. - Will continue home meds: Lisinopril, HCTZ, Metoprolol - Today her BP is 4. HLD - Continue home med: Atorvastatin 5. RA - Continue home med: Methotrexate 6. Depression - Continue home med: Cymbalta 7. Panniculitis - Ordered Nystatin powder schedule yesterday. She says she experience relief from the irritation. Diet: CC diet. IVF: None DVT Prophylaxis: SCDs GI Prophylaxis: Pepcid Code Status: Full Code Dispo: Discussed results of stool studies with Dr. Soto. He said as long as she was tolerating food well and her pain was under control she would be good to go today. F/U with GI and plan for colonoscopy w/i 1 month. Will D/C her with Bentyl, Miralax, and Nystatin powder.
[2019-02-09 04:33] LABS: #Eosinphils 0.2 thou/uL (0.0-0.7); #Lymphocytes 3.4 thou/uL (1.20-3.40); %Basophils 0.1 % (0.0-1.0); %Eosinophils 1.8 % (0.0-10.0); %Lymphocytes 25.1 % (21.0-51.0); Hemoglobin 12.7 g/dL (12.0-16.0); Mean Corpuscular HGB CONC 33.3 g/dL (32.0-36.0); Mean Corpuscular Hemoglobin 28.7 pg (27.0-31.0); Mean Corpuscular Volume 86.2 fL (78.0-98.0); Mean Platelet Volume 7.9 fL (7.4-10.4); Platelet Count 269 thou/uL (130-400); Red Blood Cell (RBC) Count 4.42 mill/uL (4.20-5.40); White Blood Cell (WBC) Count 13.6 thou/uL (4.8-10.8)
[2019-02-09] MEDS: Dicyclomine 20 MG TAB PO PRN (04:34)
[2019-02-09] MEDS: Levothyroxine Sodium 50 MCG TAB PO SCH (04:34)
[2019-02-09 04:59] LABS: Anion Gap 13 mmol/L (10-20); BUN (Urea Nitrogen) 9 mg/dL (9.8-20.1); Calc. Creatinine Clearance 187 mL/min (70-130); Calcium 9.6 mg/dL (7.8-10.44); Carbon Dioxide 27 mmol/L (22-29); Chloride 103 mmol/L (98-107); Estimated GFR-MDRD 84; Glucose 117 mg/dL (70-105); Potassium 3.5 mmol/L (3.5-5.1); Sodium 139 mmol/L (136-145)
[2019-02-09] MEDS: Fish Oil 1,000 MG CAP PO SCH (08:01)
[2019-02-09] MEDS: Folic Acid 1 MG TAB PO SCH (08:01)
[2019-02-09] MEDS: Trospium 20 MG TAB PO SCH (08:01)
[2019-02-09] MEDS: Famotidine 20 MG TAB PO SCH (08:01)
[2019-02-09] MEDS: Nystatin Powder 15 GM BOT TOP SCH (08:02)
[2019-02-09] MEDS ORDERED: Insulin Glargine 120 UNITS in Pre-Filled Syringe 1 EACH SC SCH (09:00)
[2019-02-09] MEDS: Metoprolol Tartrate 100 MG TAB PO SCH (09:19)
[2019-02-09] MEDS: Hydrochlorothiazide 25 MG TAB PO SCH (09:19)
[2019-02-09] MEDS: HumaLOG 300 UNITS/3 ML VIAL SC PRN (11:34)
--- NOTE | 2019-02-09 11:51 | PRG ---
DATE OF SERVICE: 02/09/2019 Ms. Gallagher looks and feels much better. She states that the Bentyl has been very helpful. All of her stool cultures were negative. She will be discharged today. Job ID: [id number]
[2019-02-09 12:37] VITALS: BP 121/58; TEMP 97.9
--- NOTE | 2019-02-10 13:19 | PQF ---
CLINICAL DOCUMENTATION IMPROVEMENT CLARIFICATION FORM: ICD-10 Updated PLEASE DO AN ADDENDUM TO THE PROGRESS NOTE WITH ANY DOCUMENTATION UPDATES OR ADDITIONS AND CARRY THROUGH TO DC SUMMARY. THANK YOU. DATE: 02/10/19 ATTN: DR. RODRÍGUEZ Please exercise your independent, professional judgment in responding to the clarification form. Clinical indicators are provided on the bottom of this form for your review Please check appropriate box(s): BMI > 40 with associated diagnosis of: (check one) [ x ] Morbid (Severe) Obesity [ ] Due to excess calories [ X ] with Alveolar Hypoventilation (Pickwickian syndrome) [ ] Overweight [ ] Obesity [ ] Other diagnosis [ ] Unable to determine In addition, please specify: Present on Admission (POA): [ X ] Yes [ ] No [ ] Unable to Determine For continuity of documentation, please document condition throughout progress notes and discharge summary. Thank You. BMI < 19 Under weight 19 - 24.9 Healthy 25.0 - 29.9Slightly Overweight 30.0 - 34.9Obese 35.0 - 39.9Severely Obese 40.0 and OverMorbidly Obese CLINICAL INDICATORS - SIGNS / SYMPTOMS / LABS BMI 46.9 RISKS: DIABETES HTN CAD TREATMENT: CARB CONSISTENT DIET USE OF LARGE EQUIPMENT (BP CUFF, WHEELCHAIR) SAP Manager Custom Crystal Reports Winform Viewer (This form is maintained as a part of the permanent medical record) 2014 [employer]. All Rights Reserved OLLIE [email or web address] Office: [phone] [facility] HOSPITALSume[facility]
--- NOTE | 2019-02-10 13:52 | DIS ---
DATE OF ADMISSION: 02/06/2019 DATE OF DISCHARGE: 02/09/2019 RESIDENT: Red Irwin MD ADMITTING ATTENDING: Benito Romero MD DISCHARGE ATTENDING: Kendell Stallworth MD CONSULTS: Dr. Soto, GI. PROCEDURES: None. PRIMARY DIAGNOSIS: Infectious colitis. SECONDARY DIAGNOSES: 1. Coronary artery disease with triple bypass. 2. Hyperlipidemia. 3. Type 2 diabetes. 4. Hypertension. 5. Osteoarthritis. 6. Fibromyalgia. 7. Osteoporosis. 8. Depression. 9. Hypothyroidism. 10. Panniculitis. DISCHARGE MEDICATIONS: 1. Aspirin 325 mg q.a.m. 2. Atorvastatin 80 mg at bedtime. 3. Butrans patch q.7 days. 4. Vitamin D3 of 50,000 unit capsule q.7 days. 5. Duloxetine 60 mg capsule at bedtime. 6. Toviaz 8 mg tablet daily. 7. Folic acid 1 mg daily. 8. Glimepiride 8 mg q.a.m. with meals. 9. Hydrochlorothiazide 12.5 mg x2 tablets daily. 10. Toujeo 140 units subq daily. 11. Levothyroxine 50 mcg q.a.m. 12. Lisinopril 5 mg daily. 13. Methotrexate 25 mg IV q.7 days. 14. Metoprolol tartrate 100 mg daily. 15. Fish oil 1 tablet daily. 16. Ranitidine 150 mg daily. 17. Rituximab as directed by head filter tank tender helper. Medications from the hospital, she was discharged on; 1. Dicyclomine 20 mg p.r.n. for GI cramping. 2. Nystatin powder p.r.n. for irritation rash. 3. Polyethylene glycol daily p.r.n. for constipation. Discontinued medications: 1. Senokot 2 tablets p.o. b.i.d. p.r.n. for constipation. 2. Promethazine. 3. Morphine sulfate. 4. Famotidine. 5. Azithromycin 500 mg x3 doses. HISTORY OF PRESENT ILLNESS: The patient is a 53-year-old female with history of RA, dermatitis, fibromyalgia, OA, osteoporosis, diabetes type 2, hypertension, hyperlipidemia, and history of recurrent pancreatitis, who presented with complaints of diffuse abdominal pain and rectal bleeding in the toilet and on the tissue after going to the rest room. The abdominal pain started on 02/05 at around 5 a.m. she had a constant pressure in her lower abdomen that was 9/10 pain. She has taken no medication for it. She recently received antibiotics 3 to 4 weeks ago for URI before developing these symptoms. She says she was able to go about her daily activities. On 02/05, after dinner, she felt nauseous and the need to have a bowel movement. Upon going to bathroom, she said that she had several small very bloody bowel movements that collectively contained about a cup of blood. She was able to eventually fall asleep that evening, but woke up on 02/05 at 11.30 and was unable to get back to bed after that. She decided to come to the ER on 02/06 at 6.30 in the morning. She takes methotrexate and Rituximab for RA. She has never been diagnosed with IBD and never had a previous episode of this. She did have a FIT test at age 50, which she said was normal. GI was consulted and Dr. Soto came to visit the patient. The patient had a CT scan that showed diffuse inflammation throughout the colon. Dr. Soto decided to give her azithromycin 500 mg x3 doses. During the hospital stay, she was also given Bentyl for GI cramping and MiraLAX for constipation with much relief. Throughout the course of her hospital stay, her abdominal cramping improved. Her white count on admission was 17 and trended down to 13.6. She never developed fever or chills. She was able to eat and was found stable enough to discharge home. The plan was discussed with the patient and she was in agreement. DISPOSITION: Stable. DISCHARGE INSTRUCTIONS: 1. Location: Home. 2. Diet: Diabetic diet as tolerated, recommend bland food. 3. Activity: As tolerated. 4. Followup: The patient should follow up with her primary care provider, Dr. Jeramy Yee within 7 days of discharge. The patient should also follow up with Dr. Phoenix Soto, the ancient art curator , who saw her during her hospital within the next 14 days. He anticipates the need to do a colonoscopy within the next month. Job ID: [id number] MTDD
[2019-02-13] MEDS ORDERED: BUPRENORPHINE TOP SCH (09:00)
[2019-02-13] MEDS ORDERED: Non-Formulary Item 1 EACH (Cholecalciferol (Vitamin D3) [Vitamin D3] 50,000 UNIT) PO SCH (09:00)
== END 2019-02-09 12:37 | disposition home or self-care (01) | DRG 392 ==
LOC: ERS 06:46 → 2SW 11:40 → OBSVTOIN 13:56
PROVIDERS: ADMIT Family Medicine; ATTEND Family Medicine
DX: A09 Infectious gastroenteritis and colitis, unspecified (principal); M79.7 Fibromyalgia; M19.90 Unspecified osteoarthritis, unspecified site; I10 Essential (primary) hypertension; F17.210 Nicotine dependence, cigarettes, uncomplicated; E11.65 Type 2 diabetes mellitus with hyperglycemia; F32.9 Major depressive disorder, single episode, unspecified; M79.3 Panniculitis, unspecified; E78.5 Hyperlipidemia, unspecified; M06.9 Rheumatoid arthritis, unspecified; Z88.2 Allergy status to sulfonamides; Z91.040 Latex allergy status; Z79.84 Long term (current) use of oral hypoglycemic drugs; Z79.82 Long term (current) use of aspirin; Z79.4 Long term (current) use of insulin; Z79.51 Long term (current) use of inhaled steroids
CPT/HCPCS: 36415; 36416; 74177; 80048; 80053; 80061; 81003; 81015; 81025; 82274; 83036; 83690; 84145; 85025; 85652; 86140; 87045; 87046; 87324; 87449; 87899; 96365; 96375; J0456; J1815; J2185; J2270; J2405; J7050; Q0162; Q0169; Q9966

== ENCOUNTER 2019-03-09 10:50 | Outpatient (CLI) | payer MEDICARE, MEDICAID ==
--- NOTE | 2019-03-14 06:45 | MMO ---
Bilateral MAMMO Bilat Screen [facility]. CLINICAL HISTORY: Patient is 53 years old and is seen for screening. The patient has the following family history of breast cancer: mother, at age 58 and paternal grandmother. The patient has no personal history of cancer. VIEWS: The views performed were: bilateral craniocaudal with tomosynthesis and bilateral mediolateral oblique with tomosynthesis. FILMS COMPARED: The present examination has been compared to prior imaging studies performed at [facility] on 01/11/2015, 01/13/2016 and 01/27/2017. MAMMOGRAM FINDINGS: There are scattered fibroglandular densities. There are benign appearing calcifications seen in both breasts. There are no suspicious masses, suspicious calcifications, or new areas of architectural distortion. IMPRESSION: THERE IS NO MAMMOGRAPHIC EVIDENCE OF MALIGNANCY. A ROUTINE FOLLOW-UP MAMMOGRAM IN 1 YEAR IS RECOMMENDED. THE RESULTS OF THIS EXAM WERE SENT TO THE PATIENT. ACR BI-RADS Category 2 - Benign finding MAMMOGRAPHY NOTE: 1. A negative mammogram report should not delay a biopsy if a dominant of clinically suspicious mass is present. 2. Approximately 10% to 15% of breast cancers are not detected by mammography. 3. Adenosis and dense breasts may obscure an underlying neoplasm. Reported by: JOSE JAMES MD Electonically Signed: [id number]
== END 2019-03-09 10:51 | disposition home or self-care (01) ==
LOC: BICMAMMO 10:50
PROVIDERS: ATTEND Family Medicine
DX: Z12.31 Encounter for screening mammogram for malignant neoplasm of breast (principal); Z80.3 Family history of malignant neoplasm of breast
CPT/HCPCS: 77063; 77067

== ENCOUNTER 2019-04-12 11:39 | Outpatient (CLI) | payer MEDICARE, MEDICAID ==
--- NOTE | 2019-04-12 11:56 | RAD ---
Exam: 3 views of the lumbosacral spine HISTORY: Low back pain after fall COMPARISON: Prior exam dated 11/13/2015 FINDINGS: 5 No acute fracture or subluxation demonstrated. There is stable grade 1 anterolisthesis of L4 and L5 w hich is likely degenerative. There is stable moderate disc degenerative disease at L3-4, 5 and L5-S1. Moderate facet osteoarthrosis seen at L5-S1. There are vascular calcifications involving the abdominal aorta. IMPRESSION: No acute fracture or subluxation demonstrated. Stable [id number] spondylosis of the lumbar spine.
== END 2019-04-12 11:40 | disposition home or self-care (01) ==
LOC: BICRAD 11:39
PROVIDERS: ATTEND Internal Medicine Rheumatology
DX: M54.5 Low back pain (principal); M47.816 Spondylosis without myelopathy or radiculopathy, lumbar region
CPT/HCPCS: 72100

== ENCOUNTER 2019-05-12 08:14 | Day surgery (SDC) | payer MEDICARE, MEDICAID ==
[2019-05-12] MEDS ORDERED: Sodium Chloride 0.9% 20 ML ONE (08:25)
[2019-05-12 09:52] VITALS: TEMP 98.4
[2019-05-12 14:12] VITALS: BP 123/61
== END 2019-05-12 14:18 | disposition home or self-care (01) ==
LOC: ONC/OP 08:14
PROVIDERS: ATTEND Internal Medicine Rheumatology
DX: M05.79 Rheumatoid arthritis with rheumatoid factor of multiple sites without organ or systems involvement (principal); Z88.2 Allergy status to sulfonamides; Z88.8 Allergy status to other drugs, medicaments and biological substances; Z91.040 Latex allergy status
CPT/HCPCS: 96375; 96413; 96415; J2930; J7050; J9312; Q0163

== ENCOUNTER 2019-09-15 08:01 | Day surgery (SDC) | payer MEDICARE, MEDICAID | END 2019-09-15 14:35 | disposition home or self-care (01) | LOC: ONC/OP 08:01 | PROVIDERS: ATTEND Internal Medicine Rheumatology | DX: M05.79 Rheumatoid arthritis with rheumatoid factor of multiple sites without organ or systems involvement (principal); Z88.2 Allergy status to sulfonamides; Z88.8 Allergy status to other drugs, medicaments and biological substances; Z91.040 Latex allergy status | CPT/HCPCS: 96375; 96413; 96415; J1200; J2930; J7050; J9312 ==

== ENCOUNTER 2019-10-10 08:29 | Outpatient (CLI) | payer MEDICARE, MEDICAID ==
--- NOTE | 2019-10-10 09:14 | ULT ---
TRANSABDOMINAL AND ENDOVAGINAL PELVIC ULTRASOUND: HISTORY: Post menopausal bleeding. COMPARISON: None. TECHNIQUE: Transabdominal and endovaginal imaging of the pelvis is performed. Ovaries are interrogated with forde scale, color flow, Doppler imaging and spectral wave form analysis. FINDINGS: Uterus: Solid echotexture focus in the subserosal aspect of the uterus measuring 1.6 x 0.8 x 1.7 cm. Second solid echotexture focus along the right aspect of the uterus is also subserosal in location and measures 1.2 x 0.8 x 1.2 cm Uterus measurin.6 x 5.1 x 4.1 cm. Endometrium: Heterogeneous, thickened endometrium. Cystic components are noted. Endometrium diameter: 1.2 cm. Free fluid: None. Right ovary: Normal echotexture. Right ovary measurement: 2.4 x 1.9 x 1.4 cm. Left ovary: Normal echotexture. Left ovary measurements: 2.9 x 1.3 x 1.4 cm. Ovarian Doppler: There is vascular flow to the left and right ovary. IMPRESSION: 1. Subserosal uterine leiomyomas. 2. Heterogeneous, thickened endometrium with areas of possible cystic change. 3. Constellation of findings suggest further evaluation with pelvic MRI. Transcribed Date/Time: 10/10/2019 9:37 AM
== END 2019-10-10 08:30 | disposition home or self-care (01) ==
LOC: BICULT 08:29
PROVIDERS: ATTEND Family Medicine
DX: N95.0 Postmenopausal bleeding (principal); D25.2 Subserosal leiomyoma of uterus; R93.89 Abnormal findings on diagnostic imaging of other specified body structures
CPT/HCPCS: 76856

== ENCOUNTER 2020-01-05 08:18 | Day surgery (SDC) | payer MEDICARE, MEDICAID ==
[~2020-01-05 08:18] MED LIST changes: -Acetaminophen 500 MG TAB PO SCH; +RITUXAN IVPB SCH; -RITUXIMAB IVPB SCH; -diphenhydrAMINE 25 MG CAP PO PRN; -diphenhydrAMINE 25 MG CAP PO SCH
[2020-01-05] MEDS ORDERED: Sodium Chloride 0.9% 20 ML ONE (08:34)
[2020-01-05 09:14] VITALS: BP 129/59; TEMP 98.4
== END 2020-01-05 13:24 | disposition home or self-care (01) ==
LOC: ONC/OP 08:18
PROVIDERS: ATTEND Internal Medicine Rheumatology
DX: M05.79 Rheumatoid arthritis with rheumatoid factor of multiple sites without organ or systems involvement (principal); Z88.1 Allergy status to other antibiotic agents; Z88.2 Allergy status to sulfonamides; Z91.040 Latex allergy status
CPT/HCPCS: 96375; 96413; 96415; J1200; J2930; J7050; J9312

== ENCOUNTER 2020-03-25 07:35 | Outpatient (CLI) | payer MEDICARE, MEDICAID, OTHER ==
[2020-03-25 11:56] LABS: Mean Corpuscular HGB CONC 33.4 g/dL (32.0-36.0); Mean Corpuscular Hemoglobin 28.5 pg (27.0-31.0); Mean Corpuscular Volume 85.2 fL (78.0-98.0); Mean Platelet Volume 9.2 fL (7.4-10.4); Platelet Count 319 thou/uL (130-400); RBC Distribution Width 12.8 % (11.5-14.5); Red Blood Cell (RBC) Count 5.27 mill/uL (4.20-5.40); White Blood Cell (WBC) Count 14.5 thou/uL (4.8-10.8)
[2020-03-25 18:01] LABS: SARS-CoV-2 MS2 Positive; SARS-CoV-2 N Gene Negative; SARS-CoV-2 S Gene Negative; SARS-CoV-2 by NAA Not Detected (NotDetected); SARS-CoV-2 orf1ab Negative
== END 2020-03-25 07:36 | disposition home or self-care (01) ==
LOC: LABBT 07:35
PROVIDERS: ATTEND Student in an Organized Health Care Education/Training Program
DX: Z01.812 Encounter for preprocedural laboratory examination (principal); Z20.828 Contact with and (suspected) exposure to other viral communicable diseases; N95.0 Postmenopausal bleeding
CPT/HCPCS: 85027; U0003; 87635

== ENCOUNTER 2020-03-28 10:15 | Day surgery (SDC) | payer MEDICARE, MEDICAID ==
[2020-03-28] MEDS ORDERED: Ondansetron PF 4 MG/2 ML Vial ONE (11:29)
[2020-03-28] MEDS ORDERED: Glycopyrrolate 0.2 MG/ML 5 ML SYRINGE ONE (11:29)
[2020-03-28] MEDS ORDERED: Rocuronium Bromide 10 MG/ML (10ML VIAL) ONE (11:29)
[2020-03-28] MEDS ORDERED: PHENYLEPHRINE-NS 100 MCG/ML 10 ML SYRINGE ONE (11:29)
[2020-03-28] MEDS ORDERED: PROPOFOL 200 MG/20 ML VIAL ONE (11:29)
[2020-03-28] MEDS ORDERED: Lidocaine 1% PF 5 ML VIAL ONE (11:29)
[2020-03-28] MEDS ORDERED: Fentanyl 100 MCG/2 ML VIAL ONE ×3 (12:11→14:38)
[2020-03-28] MEDS ORDERED: Midazolam HCl 2 mg/2 ml Vial ONE (12:11)
[2020-03-28] MEDS ORDERED: Nitroglycerin 0.4 MG TAB (25 Tab Bottle) ONE (14:13)
[2020-03-28] MEDS ORDERED: Mag-Al 1200 mg/1200 mg/30 ML UDCUP ONE (14:31)
[2020-03-28] MEDS ORDERED: Lidocaine Viscous Sol 2% 15 ml UD Cup ONE (14:31)
[2020-03-28] MEDS ORDERED: Hydrocodone-Acetamin 15 ML UDCUP ONE (15:27)
--- NOTE | 2020-03-29 13:49 | OP ---
DATE OF PROCEDURE: 03/28/2020 PREOPERATIVE DIAGNOSES: 1. Postmenopausal vaginal bleeding. 2. Thickened endometrium. POSTOPERATIVE DIAGNOSES: 1. Postmenopausal vaginal bleeding. 2. Thickened endometrium. PROCEDURES PERFORMED: 1. Hysteroscopy. 2. TruClear biopsy with dilation and curettage. ANESTHESIA: General endotracheal. CRIMINAL JUDGE SURGEON: None. ESTIMATED BLOOD LOSS: 10 mL. PATHOLOGY: Uterine mass and endometrial curettings. FINDINGS: The endometrial cavity had three separate masses in the uterus, that were resected with the TruClear Incisor. Thinned endometrium other than the separate polyp like lesions. Bilateral tubal ostia were visualized. Endocervical canal was within normal limits. Fluid deficit for the case was 490 mL. DESCRIPTION OF PROCEDURE: The patient was taken to the operating room where general anesthesia was obtained without difficulty. The patient was prepped and draped in a sterile fashion in a dorsal lithotomy position. A speculum was placed in the vagina. The anterior lip of the cervix was grasped with a single-tooth tenaculum. The cervix was then progressively dilated with Martin dilators to a #20-Singaporean and the 5-mm TruClear hysteroscope was assembled and primed and inserted into the uterus. Distention was obtained with normal saline and photodocumentation was performed. Bilateral tubal ostia were visualized. Three separate lesions, two on the anterior surface and one on the posterior surface, were captured with photo and the small incisor blade was used to resect these under direct visualization and the three areas were sent together for final pathology. The hysteroscope was then removed. A sharp curetting was performed to the uterine wall and these were sent for final pathology as well. The tenaculum was then removed off the cervix. The tenaculum site was hemostatic with pressure. All instruments were removed out of vagina. The patient tolerated the procedure well. Sponge, lap, and needle counts correct x2. The patient was taken to recovery room in stable condition. No preoperative antibiotics were given for prophylaxis for this case. Job ID: [id number]
--- NOTE | 2020-04-03 20:10 | EKG ---
Test Reason : PREOP Blood Pressure : / mmHG Vent. Rate : 056 BPM Atrial Rate : 056 BPM P-R Int : 176 ms QRS Dur : 086 ms QT Int : 442 ms P-R-T Axes : 054 046 106 degrees QTc Int : 426 ms Sinus bradycardia Inferior infarct , age undetermined T wave abnormality, consider lateral ischemia Abnormal ECG No previous ECGs available Confirmed by GINO BERGER, DR. Tinoco (4) on 04/03/2020 8:10:12 PM Referred By: NICO Confirmed By:DR. Earnest CHRISTIAN MD
--- NOTE | 2020-04-03 20:11 | EKG ---
Test Reason : POST OP Blood Pressure : / mmHG Vent. Rate : 063 BPM Atrial Rate : 063 BPM P-R Int : 174 ms QRS Dur : 092 ms QT Int : 444 ms P-R-T Axes : 062 041 111 degrees QTc Int : 454 ms Normal sinus rhythm Inferior infarct (cited on or before 28-MAR-2020) T wave abnormality, consider lateral ischemia Abnormal ECG When compared with ECG of 28-MAR-2020 11:13, (Unconfirmed) No significant change was found Confirmed by GINO BERGER, DR. Tinoco (4) on 04/03/2020 8:11:28 PM Referred By: STEVE Confirmed By:DR. Earnest CHRISTIAN MD
== END 2020-03-28 16:15 | disposition home or self-care (01) ==
LOC: SDC 10:15
PROVIDERS: ATTEND Student in an Organized Health Care Education/Training Program
PROC: 0UB98ZX Excision of Uterus, Via Natural or Artificial Opening Endoscopic, Diagnostic (ICD-10-PCS; principal; 2020-03-28)
PROC: 0UDB7ZX Extraction of Endometrium, Via Natural or Artificial Opening, Diagnostic (ICD-10-PCS; 2020-03-28)
DX: N84.0 Polyp of corpus uteri (principal); N95.0 Postmenopausal bleeding; E11.9 Type 2 diabetes mellitus without complications; M81.0 Age-related osteoporosis without current pathological fracture; I10 Essential (primary) hypertension; I48.91 Unspecified atrial fibrillation; M06.9 Rheumatoid arthritis, unspecified; F41.9 Anxiety disorder, unspecified; F32.9 Major depressive disorder, single episode, unspecified; E66.9 Obesity, unspecified; Z68.42 Body mass index [BMI] 45.0-49.9, adult; Z87.891 Personal history of nicotine dependence; Z79.4 Long term (current) use of insulin; Z79.82 Long term (current) use of aspirin; Z79.899 Other long term (current) drug therapy; Z88.1 Allergy status to other antibiotic agents; Z88.2 Allergy status to sulfonamides; Z91.040 Latex allergy status; Z95.1 Presence of aortocoronary bypass graft; Z95.2 Presence of prosthetic heart valve
CPT/HCPCS: 36416; 86850; 86900; 86901; 88305; 93005; 93010; J0690; J2250; J2405; J2704; J3010

== ENCOUNTER 2020-05-03 08:22 | Day surgery (SDC) | payer MEDICARE, MEDICAID ==
[2020-05-03] MEDS ORDERED: Sodium Chloride 0.9% 20 ML ONE (08:26)
[2020-05-03 08:47] VITALS: TEMP 98.1
[2020-05-03 13:33] VITALS: BP 149/73
== END 2020-05-03 13:33 | disposition home or self-care (01) ==
LOC: ONC/OP 08:22
PROVIDERS: ATTEND Internal Medicine Rheumatology
DX: M05.79 Rheumatoid arthritis with rheumatoid factor of multiple sites without organ or systems involvement (principal); Z88.1 Allergy status to other antibiotic agents; Z88.2 Allergy status to sulfonamides; Z91.040 Latex allergy status
CPT/HCPCS: 96375; 96413; 96415; J1200; J2930; J7050; J9312

== ENCOUNTER 2020-05-05 17:44 | Emergency (ER) | payer MEDICARE, MEDICAID | END 2020-05-05 18:35 | disposition left against medical advice (07) | LOC: ERS 17:44 | DX: Z53.21 Procedure and treatment not carried out due to patient leaving prior to being seen by health care provider (principal) ==

== ENCOUNTER 2020-07-20 19:57 | Emergency (ER) | payer MEDICARE, MEDICAID ==
[2020-07-20] MEDS ORDERED: HYDROcodone/Acetaminophen 5/325 mg Tablet ONE (20:33)
[2020-07-20] MEDS ORDERED: Acetaminophen 325 MG TAB ONE (20:33)
[2020-07-20 20:49] LABS: Mean Corpuscular HGB CONC 33.1 g/dL (32.0-36.0); Mean Corpuscular Hemoglobin 28.2 pg (27.0-31.0); Mean Corpuscular Volume 85.1 fL (78.0-98.0); Mean Platelet Volume 8.4 fL (7.4-10.4); Platelet Count 256 thou/uL (130-400); Red Blood Cell (RBC) Count 5.66 mill/uL (4.20-5.40); White Blood Cell (WBC) Count 12.9 thou/uL (4.8-10.8)
--- NOTE | 2020-07-20 20:54 | RAD ---
RADIOGRAPH CHEST 1 VIEW: DATE: 07/20/2020 TIME: 8:44 PM HISTORY: 54-year-old COVID-19 positive female with generalized weakness COMPARISON: 05/05/2020 FINDINGS: New finding of mild ill-defined infiltrates in left mid, upper, and lower lung zones, except for the apex and base. Minimal densities at right lower lung zone. Right mid and upper lung zones are clear. No cardiomegaly. No pneumothorax. Sternotomy wires. IMPRESSION: Mild left-sided pneumonia which may represent COVID-19 pneumonia.
[2020-07-20 21:10] LABS: ALT (SGPT) 20 U/L (8-55); AST (SGOT) 25 U/L (5-34); Albumin 3.9 g/dL (3.5-5.0); Alkaline Phosphatase 76 U/L (40-110); Anion Gap 19 mmol/L (10-20); BUN (Urea Nitrogen) 24 mg/dL (9.8-20.1); Bilirubin, Total 0.8 mg/dL (0.2-1.2); Calc. Creatinine Clearance 0 mL/min (70-130); Calcium 9.1 mg/dL (7.8-10.44); Carbon Dioxide 22 mmol/L (22-29); Chloride 98 mmol/L (98-107); Globulin 3.6 g/dL (2.4-3.5); Glucose 148 mg/dL (70-105); Potassium 4.4 mmol/L (3.5-5.1); Protein, Total 7.5 g/dL (6.0-8.3); Sodium 135 mmol/L (136-145)
[2020-07-20 21:11] LABS: Band 6 % (5-11); Lymphocytes 15 % (21-51); MDiff Complete? YES; Monocytes 8 % (0-10); Neutrophil 71 % (42-75); Platelet Morphology Comment Appears Adequate; RBC Morphology Normal
== END 2020-07-20 21:50 | disposition home or self-care (01) ==
LOC: ERS 19:57
DX: U07.1 COVID-19 (principal); M06.9 Rheumatoid arthritis, unspecified; I10 Essential (primary) hypertension; E11.9 Type 2 diabetes mellitus without complications; Z79.899 Other long term (current) drug therapy
CPT/HCPCS: 36415; 71045; 80053; 85025; 93005

== ENCOUNTER 2020-09-20 12:48 | Outpatient (CLI) | payer MEDICARE, MEDICAID ==
--- NOTE | 2020-09-20 14:03 | MMO ---
Bilateral MAMMO Bilat Screen [facility]. CLINICAL HISTORY: Patient is 54 years old and is seen for screening. The patient has the following family history of breast cancer: mother, at age 58 and paternal grandmother. The patient has no personal history of cancer. VIEWS: The views performed were: bilateral craniocaudal with tomosynthesis and bilateral mediolateral oblique with tomosynthesis. FILMS COMPARED: The present examination has been compared to prior imaging studies performed at [facility] on 01/11/2015, 01/13/2016, 01/27/2017 and 03/09/2019. This study has been interpreted with the assistance of computer-aided detection. MAMMOGRAM FINDINGS: There are scattered fibroglandular densities. There are stable benign appearing calcifications seen in both breasts. There are no suspicious masses, suspicious calcifications, or new areas of architectural distortion. IMPRESSION: THERE IS NO MAMMOGRAPHIC EVIDENCE OF MALIGNANCY. A ROUTINE FOLLOW-UP MAMMOGRAM IN 1 YEAR IS RECOMMENDED. THE RESULTS OF THIS EXAM WERE SENT TO THE PATIENT. ACR BI-RADS Category 2 - Benign finding MAMMOGRAPHY NOTE: 1. A negative mammogram report should not delay a biopsy if a dominant of clinically suspicious mass is present. 2. Approximately 10% to 15% of breast cancers are not detected by mammography. 3. Adenosis and dense breasts may obscure an underlying neoplasm. Reported by: KRANTHI HI MD Electonically Signed: [id number]
--- NOTE | 2020-09-20 17:01 | ULT ---
RENAL ULTRASOUND: 09/20/20 INDICATIONS: History of dysuria. FINDINGS: The right kidney measures 12.7 x 6.2 x 6.1 cm. The left kidney measures 12.7 x 6.1 x 5.9 cm. No focal renal lesion or hydronephrosis is evident. The visualized bladder demonstrated no intraluminal defec t. There is normal bilateral ureteral jets. There is minimal postvoid residual. IMPRESSION: No focal renal lesion or hydronephrosis. POS: BH
== END 2020-09-20 12:49 | disposition home or self-care (01) ==
LOC: BICMAMMO 12:48
PROVIDERS: ATTEND Family Medicine
DX: Z12.31 Encounter for screening mammogram for malignant neoplasm of breast (principal); R30.9 Painful micturition, unspecified; Z80.3 Family history of malignant neoplasm of breast
CPT/HCPCS: 76770; 77063; 77067

== ENCOUNTER 2021-04-03 13:50 | Outpatient (CLI) | payer MEDICARE, MEDICAID | END 2021-04-03 13:51 | disposition home or self-care (01) | LOC: BICRAD 13:50 | PROVIDERS: ATTEND Family Medicine | DX: L03.031 Cellulitis of right toe (principal); M79.674 Pain in right toe(s) ==

== ENCOUNTER 2021-04-03 18:48 | Inpatient (IN) | payer MEDICARE, MEDICAID ==
[2021-04-03 20:26] LABS: #Eosinphils 0.1 thou/uL (0.0-0.7); #Lymphocytes 3.2 thou/uL (1.20-3.40); #Monocytes 0.9 thou/uL (0.11-0.59); #Neutrophils 8.8 thou/uL (1.40-6.50); %Basophils 0.2 % (0.0-1.0); %Eosinophils 0.9 % (0.0-10.0); %Lymphocytes 24.4 % (21.0-51.0); %Monocytes 6.7 % (0.0-10.0); %Neutrophils 67.8 % (42.0-75.0); Hemoglobin 13.3 g/dL (12.0-16.0); Mean Corpuscular HGB CONC 35.2 g/dL (32.0-36.0); Mean Platelet Volume 8.1 fL (7.4-10.4); Platelet Count 277 thou/uL (130-400); RBC Distribution Width 13.5 % (11.5-14.5); Red Blood Cell (RBC) Count 4.31 mill/uL (4.20-5.40)
[2021-04-03 20:48] LABS: ALT (SGPT) 23 U/L (8-55); AST (SGOT) 13 U/L (5-34); Albumin 3.9 g/dL (3.5-5.0); Alkaline Phosphatase 86 U/L (40-110); Anion Gap 14 mmol/L (10-20); BUN (Urea Nitrogen) 21 mg/dL (9.8-20.1); Bilirubin, Total 0.3 mg/dL (0.2-1.2); Calc. Creatinine Clearance 0 mL/min (70-130); Calcium 9.9 mg/dL (7.8-10.44); Carbon Dioxide 27 mmol/L (22-29); Chloride 99 mmol/L (98-107); Globulin 3.1 g/dL (2.4-3.5); Glucose 294 mg/dL (70-105); Sodium 136 mmol/L (136-145)
[2021-04-03] MEDS ORDERED: cefTRIAXone\\ROCEPHIN 2 GM VIAL ONE (21:27)
[2021-04-03] MEDS ORDERED: Vancomycin 1 GM/200 ML BAG ONE (22:11)
[2021-04-03] MEDS ORDERED: Dextrose 50% Abboject 50 ML SYRINGE SLOW IVP PRN (22:43)
[2021-04-03] MEDS ORDERED: Ondansetron ODT 4 MG TAB PO PRN (22:43)
[2021-04-03] MEDS ORDERED: Acetaminophen 325 MG TAB PO PRN (22:43)
[2021-04-03] MEDS ORDERED: Dextrose 5% in Water 1,000 ML IV PRN (22:43)
[2021-04-03] MEDS ORDERED: HumaLOG 300 UNITS/3 ML VIAL SC PRN (22:43)
[2021-04-03 23:59] VITALS: BMI 44.2
[2021-04-03] MEDS ORDERED: Enoxaparin Sodium 40 MG/0.4 ML SYRINGE SC SCH (23:59)
[2021-04-03] MEDS ORDERED: Piperacillin/Tazobactam 3.375 GM in Sodium Chloride 0.9% 100 ML IVPB SCH (23:59)
[2021-04-04 00:22] LABS: SARS-CoV-2 NAA Rapid Test Not Detected (NotDetected)
[2021-04-04 00:26] LABS: Hemoglobin A1c 9.9 % (4.0-6.0)
[2021-04-04] MEDS ORDERED: Piperacillin/Tazobactam 3.375 GM in Sodium Chloride 0.9% 100 ML IVPB SCH ×2 (00:30→05:00)
[2021-04-04] MEDS ORDERED: Vancomycin 1 GM in Premix Bag 1 BAG IVPB SCH (01:00)
[2021-04-04] MEDS ORDERED: Lisinopril 5 MG TAB PO SCH ×2 (02:00→21:00)
[2021-04-04] MEDS ORDERED: Piperacillin/Tazobactam 3.375 GM VIAL ONE ×2 (03:37→06:57)
[2021-04-04] MEDS ORDERED: Enoxaparin Sodium 40 MG/0.4 ML SYRINGE ONE (03:37)
[2021-04-04 04:49] LABS: Hemoglobin 12.2 g/dL (12.0-16.0); Mean Corpuscular HGB CONC 34.4 g/dL (32.0-36.0); Mean Corpuscular Hemoglobin 30.8 pg (27.0-31.0); Mean Corpuscular Volume 89.5 fL (78.0-98.0); Mean Platelet Volume 7.9 fL (7.4-10.4); Platelet Count 276 thou/uL (130-400); RBC Distribution Width 13.4 % (11.5-14.5); Red Blood Cell (RBC) Count 3.95 mill/uL (4.20-5.40); White Blood Cell (WBC) Count 10.5 thou/uL (4.8-10.8)
[2021-04-04 04:59] LABS: Anion Gap 13 mmol/L (10-20); BUN (Urea Nitrogen) 18 mg/dL (9.8-20.1); Calc. Creatinine Clearance 147 mL/min (70-130); Calcium 9.4 mg/dL (7.8-10.44); Carbon Dioxide 28 mmol/L (22-29); Chloride 102 mmol/L (98-107); Glucose 158 mg/dL (70-105); Potassium 4.1 mmol/L (3.5-5.1); Sodium 139 mmol/L (136-145)
[2021-04-04 05:19] LABS: Band 1 % (5-11); Eosinophils 2 % (0-10); Lymphocytes 44 % (21-51); MDiff Complete? YES; Monocytes 7 % (0-10); Neutrophil 46 % (42-75)
[2021-04-04] MEDS: Levothyroxine Sodium 50 MCG TAB PO SCH (07:08)
[2021-04-04] MEDS: Piperacillin/Tazobactam 3.375 GM in Sodium Chloride 0.9% 100 ML IVPB SCH ×2 (07:08→14:59)
[2021-04-04] MEDS ORDERED: Metoprolol Tartrate 50 MG TAB ONE (08:56)
[2021-04-04] MEDS ORDERED: Folic Acid 1 MG TAB ONE (08:56)
[2021-04-04] MEDS ORDERED: Folic Acid 1 MG TAB PO SCH (09:00)
[2021-04-04] MEDS ORDERED: Non-Formulary Item 1 EACH (Ergocalciferol (Vitamin D2) [Vitamin D2] 50 MCG Capsule) PO SCH (09:00)
[2021-04-04] MEDS ORDERED: DULoxetine 60 MG CAP PO SCH (09:00)
[2021-04-04] MEDS: Folic Acid 1 MG TAB PO SCH (09:15)
[2021-04-04] MEDS: Oxybutynin 5 MG TAB PO SCH (09:15)
[2021-04-04] MEDS: Gabapentin 300 MG CAP PO SCH (09:15)
[2021-04-04] MEDS: DULoxetine 30 MG CAP PO SCH ×2 (09:15→21:08)
[2021-04-04] MEDS: Metoprolol Tartrate 100 MG TAB PO SCH (09:15)
[2021-04-04] MEDS: HumaLOG 300 UNITS/3 ML VIAL SC PRN (17:02)
[2021-04-04] MEDS: Lisinopril 10 MG TAB PO SCH (21:08)
[2021-04-04] MEDS: Atorvastatin Calcium 40 MG TAB PO SCH (21:08)
[2021-04-05] MEDS: Piperacillin/Tazobactam 3.375 GM in Sodium Chloride 0.9% 100 ML IVPB SCH ×3 (00:41→18:03)
[2021-04-05 04:22] LABS: Anion Gap 12 mmol/L (10-20); BUN (Urea Nitrogen) 15 mg/dL (9.8-20.1); Calc. Creatinine Clearance 150 mL/min (70-130); Calcium 9.2 mg/dL (7.8-10.44); Carbon Dioxide 25 mmol/L (22-29); Chloride 105 mmol/L (98-107); Glucose 146 mg/dL (70-105); Potassium 3.8 mmol/L (3.5-5.1); Sodium 138 mmol/L (136-145)
[2021-04-05] MEDS: Levothyroxine Sodium 50 MCG TAB PO SCH (06:40)
[2021-04-05] MEDS ORDERED: Bupivacaine 0.25% HCL 30 ML VIAL ONE (09:13)
[2021-04-05] MEDS ORDERED: EPINEPHrine 1 MG/ML AMP ONE (09:13)
[2021-04-05] MEDS ORDERED: Fentanyl 100 MCG/2 ML VIAL ONE ×2 (09:16)
[2021-04-05] MEDS ORDERED: ePHEDrine 50 MG/ML VIAL ONE (09:26)
[2021-04-05] MEDS ORDERED: PHENYLEPHRINE-NS 100 MCG/ML 10 ML SYRINGE ONE (09:26)
[2021-04-05] MEDS ORDERED: PROPOFOL 200 MG/20 ML VIAL ONE (09:26)
[2021-04-05] MEDS ORDERED: Metoclopramide HCl 10 MG/2 ML VIAL ONE (09:26)
[2021-04-05] MEDS ORDERED: Lidocaine 1% PF 5 ML VIAL ONE (09:26)
[2021-04-05] MEDS ORDERED: Ondansetron PF 4 MG/2 ML Vial ONE (09:26)
[2021-04-05] MEDS: traMADol HCl 50 MG TAB PO PRN ×2 (18:02→21:33)
[2021-04-05] MEDS: Folic Acid 1 MG TAB PO SCH (18:07)
[2021-04-05] MEDS: DULoxetine 30 MG CAP PO SCH ×2 (18:07→20:36)
[2021-04-05] MEDS: Gabapentin 300 MG CAP PO SCH (18:08)
[2021-04-05] MEDS: Oxybutynin 5 MG TAB PO SCH (18:08)
[2021-04-05] MEDS: Metoprolol Tartrate 100 MG TAB PO SCH (18:08)
[2021-04-05] MEDS: Lisinopril 10 MG TAB PO SCH (20:36)
[2021-04-05] MEDS: Atorvastatin Calcium 40 MG TAB PO SCH (20:36)
[2021-04-05 22:07] LABS: Vancomycin, Trough 4.7 ug/mL
[2021-04-05] MEDS ORDERED: Ketorolac Tromethamine 30 MG/ML VIAL IVP SCH (22:30)
[2021-04-05] MEDS ORDERED: Vancomycin HCl 1.25 GM in Sodium Chloride 0.9% 250 ML 250 ML IVPB SCH (23:00)
[2021-04-06] MEDS: traMADol HCl 50 MG TAB PO PRN ×2 (00:27→06:09)
[2021-04-06] MEDS: Piperacillin/Tazobactam 3.375 GM in Sodium Chloride 0.9% 100 ML IVPB SCH ×2 (00:28→05:39)
[2021-04-06 04:42] LABS: Anion Gap 12 mmol/L (10-20); BUN (Urea Nitrogen) 13 mg/dL (9.8-20.1); Calc. Creatinine Clearance 156 mL/min (70-130); Calcium 8.7 mg/dL (7.8-10.44); Carbon Dioxide 26 mmol/L (22-29); Chloride 105 mmol/L (98-107); Glucose 131 mg/dL (70-105); Potassium 3.9 mmol/L (3.5-5.1); Sodium 139 mmol/L (136-145)
[2021-04-06] MEDS: Levothyroxine Sodium 50 MCG TAB PO SCH (05:39)
[2021-04-06] MEDS ORDERED: hydrALAZINE 20 MG/ML VIAL SLOW IVP PRN (07:54)
[2021-04-06] MEDS: DULoxetine 30 MG CAP PO SCH ×2 (08:56→20:24)
[2021-04-06] MEDS: Folic Acid 1 MG TAB PO SCH (08:56)
[2021-04-06] MEDS: Gabapentin 300 MG CAP PO SCH (08:56)
[2021-04-06] MEDS: Oxybutynin 5 MG TAB PO SCH (08:56)
[2021-04-06 10:53] LABS: #Basophils 0.1 thou/uL (0.0-0.2); #Eosinphils 0.1 thou/uL (0.0-0.7); #Lymphocytes 2.1 thou/uL (1.20-3.40); #Monocytes 0.9 thou/uL (0.11-0.59); %Basophils 0.7 % (0.0-1.0); %Eosinophils 1.2 % (0.0-10.0); %Monocytes 9.5 % (0.0-10.0); %Neutrophils 65.6 % (42.0-75.0); Hemoglobin 11.8 g/dL (12.0-16.0); Mean Corpuscular HGB CONC 34.9 g/dL (32.0-36.0); Mean Platelet Volume 7.8 fL (7.4-10.4); Platelet Count 243 thou/uL (130-400); RBC Distribution Width 13.3 % (11.5-14.5); Red Blood Cell (RBC) Count 3.82 mill/uL (4.20-5.40); White Blood Cell (WBC) Count 9.1 thou/uL (4.8-10.8)
[2021-04-06] MEDS ORDERED: HYDROcodone/Acetaminophen 5/325 mg Tablet PO PRN (11:21)
[2021-04-06] MEDS: HumaLOG 300 UNITS/3 ML VIAL SC PRN ×2 (11:25→17:18)
[2021-04-06] MEDS: HYDROcodone/Acetaminophen 5/325 mg Tablet PO PRN ×2 (16:29→20:28)
[2021-04-06] MEDS ORDERED: Ketorolac Tromethamine 30 MG/ML VIAL IVP SCH (18:00)
[2021-04-06] MEDS: Atorvastatin Calcium 40 MG TAB PO SCH (20:24)
[2021-04-06] MEDS ORDERED: Lisinopril 10 MG TAB PO SCH (21:00)
[2021-04-07] MEDS: HYDROcodone/Acetaminophen 5/325 mg Tablet PO PRN ×6 (01:36→22:00)
[2021-04-07 04:37] LABS: Anion Gap 12 mmol/L (10-20); BUN (Urea Nitrogen) 10 mg/dL (9.8-20.1); Calc. Creatinine Clearance 160 mL/min (70-130); Calcium 8.8 mg/dL (7.8-10.44); Carbon Dioxide 27 mmol/L (22-29); Chloride 104 mmol/L (98-107); Glucose 158 mg/dL (70-105); Potassium 3.9 mmol/L (3.5-5.1); Sodium 139 mmol/L (136-145)
[2021-04-07] MEDS: Levothyroxine Sodium 50 MCG TAB PO SCH (05:45)
[2021-04-07] MEDS: DULoxetine 30 MG CAP PO SCH ×2 (08:34→22:00)
[2021-04-07] MEDS: Folic Acid 1 MG TAB PO SCH (08:35)
[2021-04-07] MEDS: Gabapentin 300 MG CAP PO SCH (08:35)
[2021-04-07] MEDS: Oxybutynin 5 MG TAB PO SCH (08:35)
[2021-04-07] MEDS: Lisinopril/Hydrochlorothiazide 20 mg/12.5 mg Tablet PO SCH (09:30)
[2021-04-07 10:45] LABS: Vancomycin, Trough 2.3 ug/mL
[2021-04-07] MEDS: HumaLOG 300 UNITS/3 ML VIAL SC PRN ×2 (11:48→16:10)
[2021-04-07] MEDS: Atorvastatin Calcium 40 MG TAB PO SCH (21:59)
[2021-04-07] MEDS: Glimepiride 4 MG TAB PO SCH (21:59)
[2021-04-08] MEDS: HYDROcodone/Acetaminophen 5/325 mg Tablet PO PRN ×3 (03:49→15:35)
[2021-04-08 04:50] LABS: Anion Gap 15 mmol/L (10-20); BUN (Urea Nitrogen) 7 mg/dL (9.8-20.1); Calc. Creatinine Clearance 152 mL/min (70-130); Calcium 9.2 mg/dL (7.8-10.44); Carbon Dioxide 25 mmol/L (22-29); Chloride 105 mmol/L (98-107); Glucose 132 mg/dL (70-105); Potassium 3.8 mmol/L (3.5-5.1); Sodium 141 mmol/L (136-145)
[2021-04-08] MEDS: Levothyroxine Sodium 50 MCG TAB PO SCH (05:59)
[2021-04-08 08:44] VITALS: BP 149/69; TEMP 97.9
[2021-04-08] MEDS ORDERED: Polyethylene Glycol 3350 17 GM Packet PO SCH (09:00)
[2021-04-08] MEDS: Oxybutynin 5 MG TAB PO SCH (10:12)
[2021-04-08] MEDS: Glimepiride 4 MG TAB PO SCH (10:13)
[2021-04-08] MEDS: Lisinopril/Hydrochlorothiazide 20 mg/12.5 mg Tablet PO SCH (10:13)
[2021-04-08] MEDS: Gabapentin 300 MG CAP PO SCH (10:13)
[2021-04-08] MEDS: Folic Acid 1 MG TAB PO SCH (10:13)
[2021-04-08] MEDS: DULoxetine 30 MG CAP PO SCH (10:15)
== END 2021-04-08 19:33 | disposition home health service (06) | DRG 617 ==
LOC: ERS 18:48 → ERHOLD 22:43 → ONC 04-04 13:16 → OBSVTOIN 04-04 17:27
PROVIDERS: ADMIT Student in an Organized Health Care Education/Training Program; ATTEND Student in an Organized Health Care Education/Training Program
PROC: 0Y6P0Z1 Detachment at Right 1st Toe, High, Open Approach (ICD-10-PCS; principal; 2021-04-05)
DX: E11.69 Type 2 diabetes mellitus with other specified complication (principal); M86.171 Other acute osteomyelitis, right ankle and foot; L03.115 Cellulitis of right lower limb; Z68.41 Body mass index [BMI] 40.0-44.9, adult; Z20.822 Contact with and (suspected) exposure to COVID-19; E11.42 Type 2 diabetes mellitus with diabetic polyneuropathy; E11.621 Type 2 diabetes mellitus with foot ulcer; E11.65 Type 2 diabetes mellitus with hyperglycemia; L97.519 Non-pressure chronic ulcer of other part of right foot with unspecified severity; I10 Essential (primary) hypertension; E78.5 Hyperlipidemia, unspecified; M06.9 Rheumatoid arthritis, unspecified; M79.7 Fibromyalgia; I25.10 Atherosclerotic heart disease of native coronary artery without angina pectoris; E66.01 Morbid (severe) obesity due to excess calories; F32.9 Major depressive disorder, single episode, unspecified; B95.61 Methicillin susceptible Staphylococcus aureus infection as the cause of diseases classified elsewhere; B95.5 Unspecified streptococcus as the cause of diseases classified elsewhere; Z88.2 Allergy status to sulfonamides; Z88.1 Allergy status to other antibiotic agents; Z91.040 Latex allergy status; Z79.84 Long term (current) use of oral hypoglycemic drugs; Z79.82 Long term (current) use of aspirin; Z79.899 Other long term (current) drug therapy; Z95.1 Presence of aortocoronary bypass graft; Z90.49 Acquired absence of other specified parts of digestive tract; Z90.89 Acquired absence of other organs; Z83.2 Family history of diseases of the blood and blood-forming organs and certain disorders involving the immune mechanism; Z82.49 Family history of ischemic heart disease and other diseases of the circulatory system; Z87.891 Personal history of nicotine dependence
CPT/HCPCS: 36415; 36416; 80048; 80053; 80202; 83036; 83605; 85007; 85025; 85027; 85652; 86140; 87040; 87070; 87076; 87077; 87186; 87205; 88305; 88311; 96372; 96375; 96376; G0378; J0171; J0360; J0696; J1650; J1815; J1885; J2405; J2543; J2704; J2765; J3010; J3370; J3490; J7030; J7050; S0020; U0002

== ENCOUNTER 2021-06-16 12:57 | Outpatient (CLI) | payer MEDICARE, MEDICAID | END 2021-06-16 12:58 | disposition home or self-care (01) | LOC: BICRAD 12:57 | PROVIDERS: ATTEND Family Medicine | DX: L08.9 Local infection of the skin and subcutaneous tissue, unspecified (principal); M79.89 Other specified soft tissue disorders; Z89.431 Acquired absence of right foot ==

== ENCOUNTER 2021-06-23 10:33 | Outpatient (CLI) | payer MEDICARE, MEDICAID | END 2021-06-23 10:34 | disposition home or self-care (01) | LOC: BICRAD 10:33 | PROVIDERS: ATTEND Family Medicine | DX: L08.9 Local infection of the skin and subcutaneous tissue, unspecified (principal); M79.89 Other specified soft tissue disorders ==

== ENCOUNTER 2021-07-23 10:37 | Outpatient (CLI) | payer MEDICARE, MEDICAID | END 2021-07-23 10:38 | disposition home or self-care (01) | LOC: BICRAD 10:37 | PROVIDERS: ATTEND Family Medicine | DX: L03.115 Cellulitis of right lower limb (principal) ==

== ENCOUNTER 2021-12-05 08:49 | Outpatient (CLI) | payer MEDICARE, MEDICAID | END 2021-12-05 08:50 | disposition home or self-care (01) | LOC: BICMAMMO 08:49 | PROVIDERS: ATTEND Internal Medicine Rheumatology | DX: M81.0 Age-related osteoporosis without current pathological fracture (principal) | CPT/HCPCS: 77080 ==

== ENCOUNTER 2022-06-09 08:58 | Outpatient (CLI) | payer MEDICARE, MEDICAID | END 2022-06-09 08:59 | disposition home or self-care (01) | LOC: BICRAD 08:58 | PROVIDERS: ATTEND Family Medicine | DX: R05.9 Cough, unspecified (principal) | CPT/HCPCS: 71046 ==

== ENCOUNTER 2022-09-04 11:49 | Outpatient (CLI) | payer MEDICARE, MEDICAID ==
[2022-09-04 13:28] LABS: Bilirubin Neg (Negative); Blood, Urine Negative (Negative); Clarity Clear (Clear); Glucose, Urine (Dipstick) Normal (Negative); Ketone, Urine Negative (Negative); Leukocyte Negative (Negative); Nitrite Negative (Negative); Protein, Urine (Dipstick) Negative (Neg-Trace); Urobilinogen Normal mg/dL (Less than 2)
[2022-09-04 13:37] LABS: Bacteria/HPF Rare-Few HPF (None Seen); RBC/HPF 0-3 HPF (0-3); Squamous Epithelial 0-3 HPF (0-3); WBC/HPF 0-3 HPF (0-3)
[2022-09-04 13:38] LABS: Mucous/LPF Rare LPF (<2+)
[2022-09-04 13:42] LABS: Hemoglobin 13.5 g/dL (12.0-15.5); Mean Corpuscular HGB CONC 33.6 g/dL (32.0-36.0); Mean Corpuscular Hemoglobin 28.7 pg (27.0-33.0); Mean Corpuscular Volume 85.5 fl (81.6-98.3); Mean Platelet Volume 11.1 fl (7.4-10.4); Platelet Count 279 10x3/uL (150-450); White Blood Cell (WBC) Count 9.9 10x3/uL (3.5-10.5)
[2022-09-04 13:51] LABS: PTT 26.3 sec (22.0-33.0); Prothrombin Time 10.5 sec (9.5-12.1)
[2022-09-04 14:07] LABS: Anion Gap 15 mmol/L (10-20); BUN (Urea Nitrogen) 25 mg/dL (9.8-20.1); Calc. Creatinine Clearance 0 mL/min (70-130); Calcium 10.2 mg/dL (7.8-10.44); Carbon Dioxide 26 mmol/L (22-29); Chloride 105 mmol/L (98-107); Estimated GFR 84; Glucose 132 mg/dL (70-105); Potassium 4.5 mmol/L (3.5-5.1); Sodium 141 mmol/L (136-145)
== END 2022-09-04 11:50 | disposition home or self-care (01) ==
LOC: LABBT 11:49
PROVIDERS: ATTEND Urology
DX: Z01.818 Encounter for other preprocedural examination (principal); C45.9 Mesothelioma, unspecified; C18.9 Malignant neoplasm of colon, unspecified; C17.8 Malignant neoplasm of overlapping sites of small intestine; C18.8 Malignant neoplasm of overlapping sites of colon
CPT/HCPCS: 71046; 80048; 81001; 85027; 85610; 85730; 87077; 87086; 87186; 93005; 93010

== ENCOUNTER 2022-10-19 09:20 | Outpatient (CLI) | payer MEDICARE, MEDICAID | END 2022-10-19 09:21 | disposition home or self-care (01) | LOC: BICMAMMO 09:20 | PROVIDERS: ATTEND Family Medicine | DX: Z12.31 Encounter for screening mammogram for malignant neoplasm of breast (principal) | CPT/HCPCS: 77063; 77067 ==

== ENCOUNTER 2022-10-23 13:03 | Outpatient (CLI) | payer MEDICARE, MEDICAID | END 2022-10-23 13:04 | disposition home or self-care (01) | LOC: BICRAD 13:03 | PROVIDERS: ATTEND Family Medicine | DX: R05.9 Cough, unspecified (principal) | CPT/HCPCS: 71046 ==

== ENCOUNTER 2023-05-11 21:39 | Emergency (ER) | payer OTHER, MEDICARE, MEDICAID ==
[~2023-05-11 21:39] MED LIST changes: -ADMIXTURE FEE IVPB SCH; -Acetaminophen 500 MG TAB PO PRN; +Iopamidol-370 76% 500 ML MDV (1 ML CHARGE) ONE; -METHYLPREDNISOLONE SOD SUCC IVPB SCH; -RITUXAN IVPB SCH; -SODIUM CHLORIDE 0.9% IVPB SCH; -Sodium Chloride 0.9% 1,000 ML IV SCH; -[UNRECOGNIZED DRUG - OTHER] IVPB SCH; -diphenhydrAMINE 50 MG/ML VIAL IVP PRN; -diphenhydrAMINE 50 MG/ML VIAL IVP SCH
[2023-05-12] MEDS ORDERED: Ketorolac Tromethamine 30 MG/ML VIAL ONE (01:44)
== END 2023-05-12 02:41 | disposition home or self-care (01) ==
LOC: ERS 21:39
DX: S22.080A Wedge compression fracture of T11-T12 vertebra, initial encounter for closed fracture (principal); S20.312A Abrasion of left front wall of thorax, initial encounter; S10.91XA Abrasion of unspecified part of neck, initial encounter; R51.9 Headache, unspecified; I10 Essential (primary) hypertension; E11.9 Type 2 diabetes mellitus without complications; Z79.899 Other long term (current) drug therapy; Z79.82 Long term (current) use of aspirin; V89.2XXA Person injured in unspecified motor-vehicle accident, traffic, initial encounter
CPT/HCPCS: 71045; 71260; 74177; 93005; 96374; J1885; Q9967

== ENCOUNTER 2023-05-25 14:56 | Outpatient (CLI) | payer MEDICARE, MEDICAID | END 2023-05-25 14:57 | disposition home or self-care (01) | LOC: BICRAD 14:56 | PROVIDERS: ATTEND Neurological Surgery | DX: S22.080A Wedge compression fracture of T11-T12 vertebra, initial encounter for closed fracture (principal); M43.8X4 Other specified deforming dorsopathies, thoracic region | CPT/HCPCS: 72070 ==

== ENCOUNTER 2023-06-18 18:12 | Emergency (ER) | payer MEDICAID, MEDICARE ==
[2023-06-18 18:51] LABS: Bacteria/HPF None Seen HPF (None Seen); Bilirubin Negative (Negative); Blood, Urine 2+ (Negative); CAUTI Indications for Culture Pelvic or flank pain; Clarity Clear (Clear); Glucose, Urine (Dipstick) Normal (Negative); Ketone, Urine Negative (Negative); Leukocyte Negative Leu/uL (Negative); Mucous/LPF Rare LPF (<2+); Nitrite Negative (Negative); Protein, Urine (Dipstick) 10 mg/dL (Neg-Trace); Specific Gravity, Urine 1.025 (1.002-1.036); Squamous Epithelial 0-3 HPF (0-3); Urobilinogen Normal mg/dL (Less than 2); WBC/HPF 0-3 HPF (0-3); pH, Urine 5.5 (5.0-9.0)
[2023-06-18 18:54] LABS: Urine Culture Reflex No No
[2023-06-18] MEDS ORDERED: Ketorolac Tromethamine 30 MG/ML VIAL ONE (19:00)
[2023-06-18 19:45] LABS: Hematocrit 37.8 % (36.0-47.0); Hemoglobin 12.9 g/dL (12.0-16.0); Mean Corpuscular HGB CONC 34.1 g/dL (32.0-36.0); Mean Corpuscular Hemoglobin 29.5 pg (27.0-31.0); Mean Corpuscular Volume 86.5 fl (78.0-98.0); Mean Platelet Volume 10.8 fL (7.4-10.4); Platelet Count 266 10x3/uL (130-400); RBC Distribution Width 12.8 % (11.5-14.5); Red Blood Cell (RBC) Count 4.37 mill/uL (4.20-5.40); White Blood Cell (WBC) Count 11.1 10x3/uL (4.8-10.8)
[2023-06-18 19:49] LABS: Delete Auto Diff?? YES; Manual Diff?? YES
[2023-06-18 20:01] LABS: BHCG - Serum Indeterminate (NEGATIVE); Pregs Control Background? CLEAR/WHITE (CLR/WHITE); Pregs Control Bar Appear? YES (CONTROL BAR)
[2023-06-18 20:07] LABS: ALT (SGPT) 11 U/L (8-55); AST (SGOT) 14 U/L (5-34); Albumin 3.8 g/dL (3.5-5.0); Alkaline Phosphatase 73 U/L (40-110); Anion Gap 16 mmol/L (10-20); BUN (Urea Nitrogen) 17 mg/dL (9.8-20.1); Bilirubin, Total 0.3 mg/dL (0.2-1.2); Calc. Creatinine Clearance 0 mL/min (70-130); Calcium 9.2 mg/dL (7.8-10.44); Carbon Dioxide 23 mmol/L (22-29); Chloride 101 mmol/L (98-107); Estimated GFR 77; Globulin 3.3 g/dL (2.4-3.5); Glucose 161 mg/dL (70-105); Lipase 26 U/L (8-78); Potassium 3.9 mmol/L (3.5-5.1); Protein, Total 7.1 g/dL (6.0-8.3); Sodium 136 mmol/L (136-145)
[2023-06-18 20:16] LABS: Band 1 % (5-11); CellaVision Operator ID LAB.CLH1; Eosinophils 5 % (0-10); Lymphocytes 23 % (21-51); Monocytes 6 % (0-10); Neutrophil 60 % (42-75); Platelet Adequacy Comment Platelets Normal; Reactive Lymphocytes 4 % (0-10); Total Cell Count 100
== END 2023-06-18 21:53 | disposition home or self-care (01) ==
LOC: ERS 18:12
DX: N95.0 Postmenopausal bleeding (principal); I10 Essential (primary) hypertension; E11.9 Type 2 diabetes mellitus without complications; Z79.82 Long term (current) use of aspirin; Z79.899 Other long term (current) drug therapy
CPT/HCPCS: 74177; 80053; 81001; 83690; 84702; 84703; 85025; 96374; J1885; Q9967

== ENCOUNTER 2023-09-16 20:16 | Emergency (ER) | payer MEDICAID, MEDICARE ==
[2023-09-16 21:19] LABS: #Eosinphils 0.2 thou/uL (0.0-0.7); #Neutrophils 8.6 thou/uL (1.40-6.50); %Basophils 0.3 % (0.0-1.0); %Eosinophils 1.1 % (0.0-10.0); %Lymphocytes 35.5 % (21.0-51.0); %Monocytes 6.5 % (0.0-10.0); %Neutrophils 56.3 % (42.0-75.0); Hematocrit 40.6 % (36.0-47.0); Hemoglobin 13.7 g/dL (12.0-16.0); Mean Corpuscular HGB CONC 33.7 g/dL (32.0-36.0); Mean Corpuscular Hemoglobin 28.4 pg (27.0-31.0); Mean Corpuscular Volume 84.2 fl (78.0-98.0); Mean Platelet Volume 10.7 fL (7.4-10.4); Platelet Count 263 10x3/uL (130-400); RBC Distribution Width 13.1 % (11.5-14.5); Red Blood Cell (RBC) Count 4.82 mill/uL (4.20-5.40); White Blood Cell (WBC) Count 15.2 10x3/uL (4.8-10.8)
[2023-09-16 21:33] LABS: Bacteria/HPF None Seen HPF (None Seen); Bilirubin Negative (Negative); Blood, Urine Negative (Negative); CAUTI Indications for Culture Pelvic or flank pain; Clarity Clear (Clear); Glucose, Urine (Dipstick) Greater than 1000 mg/dL (Negative); Ketone, Urine Negative (Negative); Leukocyte Negative Leu/uL (Negative); Nitrite Negative (Negative); Protein, Urine (Dipstick) 10 mg/dL (Neg-Trace); RBC/HPF 0-3 HPF (0-3); Urobilinogen Normal mg/dL (Less than 2); WBC/HPF 0-3 HPF (0-3)
[2023-09-16 21:35] LABS: Urine Culture Reflex No No
[2023-09-16 21:45] LABS: ALT (SGPT) 31 U/L (8-55); AST (SGOT) 22 U/L (5-34); Albumin 3.8 g/dL (3.5-5.0); Alkaline Phosphatase 75 U/L (40-110); Anion Gap 12 mmol/L (10-20); BUN (Urea Nitrogen) 23 mg/dL (9.8-20.1); Bilirubin, Total 0.6 mg/dL (0.2-1.2); Calc. Creatinine Clearance 0 mL/min (70-130); Calcium 9.8 mg/dL (7.8-10.44); Carbon Dioxide 28 mmol/L (22-29); Chloride 98 mmol/L (98-107); Estimated GFR 53; Globulin 3.1 g/dL (2.4-3.5); Glucose 376 mg/dL (70-105); Lipase 36 U/L (8-78); Potassium 4.7 mmol/L (3.5-5.1); Protein, Total 6.9 g/dL (6.0-8.3); Sodium 133 mmol/L (136-145)
[2023-09-16 22:48] LABS: Actual Bicarbonate (HCO3v) 26.4 mEq/L (22-28); Base Excess 0.9 mEq/L (-2.0 to +3.0); Calcium, Ionized (venous) 1.19 mmol/L (1.16-1.32); Chloride (VBG) 97 mmol/L (98-106); Hematocrit-VBG 42 % (36.0-47.0); Hemoglobin (Hb) 14.3 g/dL (11.7-16.0); Potassium (VBG) 4.49 mmol/L (3.70-5.30); Sodium 134 mmol/L (133-146)
[2023-09-16] MEDS ORDERED: Lidocaine 2% Viscous 10 mL, Alum & Magn 30 mL SSW SCH (23:45)
[2023-09-17] MEDS ORDERED: Dicyclomine 20 MG TAB ONE ×2 (00:23→00:26)
== END 2023-09-17 02:48 | disposition home or self-care (01) ==
LOC: ERS 20:16
DX: R10.9 Unspecified abdominal pain (principal); I10 Essential (primary) hypertension; E11.9 Type 2 diabetes mellitus without complications; M79.7 Fibromyalgia; M06.9 Rheumatoid arthritis, unspecified; Z79.82 Long term (current) use of aspirin; Z79.899 Other long term (current) drug therapy
CPT/HCPCS: 36415; 74177; 80053; 81001; 82010; 82805; 83690; 84484; 85025; 93005

== ENCOUNTER 2024-01-19 08:34 | Outpatient (CLI) | payer MEDICARE, MEDICAID | END 2024-01-19 08:35 | disposition home or self-care (01) | LOC: BICMAMMO 08:34 | PROVIDERS: ATTEND Family Medicine | DX: Z12.31 Encounter for screening mammogram for malignant neoplasm of breast (principal); Z80.3 Family history of malignant neoplasm of breast | CPT/HCPCS: 77063; 77067 ==

== ENCOUNTER 2024-05-02 11:57 | Outpatient (CLI) | payer MEDICARE, MEDICAID | END 2024-05-02 11:58 | disposition home or self-care (01) | LOC: BICRAD 11:57 | PROVIDERS: ATTEND Internal Medicine Rheumatology | DX: M17.0 Bilateral primary osteoarthritis of knee (principal); M75.101 Unspecified rotator cuff tear or rupture of right shoulder, not specified as traumatic | CPT/HCPCS: 73565 ==

== ENCOUNTER 2024-06-19 09:32 | Emergency (ER) | payer MEDICARE, MEDICAID | END 2024-06-19 10:55 | disposition home or self-care (01) | LOC: ERS 09:32 | DX: S93.401A Sprain of unspecified ligament of right ankle, initial encounter (principal); S80.01XA Contusion of right knee, initial encounter; M25.551 Pain in right hip; E11.9 Type 2 diabetes mellitus without complications; I10 Essential (primary) hypertension | CPT/HCPCS: 72170; 99284 ==

== ENCOUNTER 2024-07-10 11:29 | Outpatient (CLI) | payer MEDICARE, MEDICAID | END 2024-07-10 11:30 | disposition home or self-care (01) | LOC: BICRAD 11:29 | PROVIDERS: ATTEND Family Medicine | DX: S69.91XA Unspecified injury of right wrist, hand and finger(s), initial encounter (principal); M79.641 Pain in right hand ==

== ENCOUNTER 2025-02-28 13:07 | Outpatient (CLI) | payer MEDICARE, MEDICAID | END 2025-02-28 13:08 | disposition home or self-care (01) | LOC: BICMAMMO 13:07 | PROVIDERS: ATTEND Family Medicine | DX: Z12.31 Encounter for screening mammogram for malignant neoplasm of breast (principal); Z80.3 Family history of malignant neoplasm of breast | CPT/HCPCS: 77063; 77067 ==

== ENCOUNTER 2025-03-13 18:32 | Emergency (ER) | payer MEDICARE, MEDICAID ==
[2025-03-13 19:31] LABS: Bacteria/HPF None Seen HPF (None Seen); CAUTI Indications for Culture Dysuria,urgency,freq; Glucose, Urine (Dipstick) Greater than 1000 mg/dL (Negative); Leukocyte Negative Leu/uL (Negative); Protein, Urine (Dipstick) 70 mg/dL (Neg-Trace); RBC/HPF 0-3 HPF (0-3); Specific Gravity, Urine 1.046 (1.002-1.036); WBC/HPF 0-3 HPF (0-3)
[2025-03-13 19:36] LABS: Urine Culture Reflex No No
[2025-03-13 20:14] LABS: #Basophils 0.06 10x3/uL (0.0-0.2); #Eosinophils 0.05 10x3/uL (0.0-0.7); #Monocytes 1.23 10x3/uL (0.11-0.59); #Neutrophils 12.15 10x3/uL (1.40-6.50); %Basophils 0.4 % (0.0-1.0); %Eosinophils 0.3 % (0.0-10.0); %Lymphocytes 16.8 % (21.0-51.0); %Monocytes 7.5 % (0.0-10.0); %Neutrophils 74.6 % (42.0-75.0); Hematocrit 49.6 % (36.0-47.0); Hemoglobin 16.6 g/dL (12.0-16.0); Mean Corpuscular Hemoglobin 27.9 pg (27.0-31.0); Mean Corpuscular Volume 83.5 fL (78.0-98.0); Platelet Count 284 10x3/uL (130-400); Red Blood Cell (RBC) Count 5.94 mill/uL (4.20-5.40); White Blood Cell (WBC) Count 16.30 10x3/uL (4.8-10.8)
[2025-03-13 20:34] LABS: ALT (SGPT) 22 U/L (Less than 34); AST (SGOT) 23 U/L (11-34); Albumin 4.0 g/dL (3.1-4.5); Alkaline Phosphatase 79 U/L (40-110); Anion Gap 19 mmol/L (10-20); BUN (Urea Nitrogen) 13 mg/dL (9.8-20.1); Bilirubin, Total 0.7 mg/dL (0.3-1.2); Calc. Creatinine Clearance 0 mL/min (70-130); Calcium 10.7 mg/dL (7.8-10.44); Carbon Dioxide 23 mmol/L (22-29); Chloride 103 mmol/L (98-107); Globulin 4.3 g/dL (2.4-3.5); Glucose 164 mg/dL (70-105); Lipase 35 U/L (8-78); Potassium 4.5 mmol/L (3.5-5.1); Sodium 140 mmol/L (136-145)
[2025-03-13] MEDS ORDERED: Ketorolac Tromethamine 30 MG (1 mL) VIAL ONE (21:54)
[2025-03-13] MEDS ORDERED: Ondansetron PF 4 MG/2 ML Vial ONE (21:54)
[2025-03-13] MEDS ORDERED: Famotidine/PF 20 mg/2ml Vial ONE (23:09)
[2025-03-13] MEDS ORDERED: Lidocaine Viscous Sol 2% 15 ml UD Cup ONE (23:09)
[2025-03-13] MEDS ORDERED: Mag-Al 1200 mg/1200 mg/30 ML UDCUP ONE (23:09)
== END 2025-03-14 | disposition home or self-care (01) ==
LOC: ERS 18:32
DX: G89.29 Other chronic pain (principal); R10.13 Epigastric pain; E11.9 Type 2 diabetes mellitus without complications; I10 Essential (primary) hypertension
CPT/HCPCS: 71045; 74177; 80053; 81001; 83605; 83690; 84484; 85025; 87040; 93005; J1308; J1885; J2270; J2405; 36415; 96361; 96374; 96375